=== PATIENT | female | born 1950 | race Two or more races ===

== ENCOUNTER 2024-10-13 10:11 | Emergency (ER) | payer MEDICARE, MEDICAID, SELFPAY ==
--- NOTE | 2024-10-13 10:34 | EKG_ITS ---
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
--- NOTE | 2024-10-13 10:35 | XR_ITS ---
Examination: PA lateral chest 2 views TECHNIQUE: Upright PA lateral chest 2 views Exam date and time: October 13, 2024 1046 hours INDICATIONS: Nausea vomiting weakness shortness of breath today FINDINGS: Normal heart size Lungs are clear The osseous structures are intact IMPRESSION: No active disease
--- NOTE | 2024-10-13 10:35 | PD.EDRME ---
Rapid Medical Screening Exam RME Arrival date/time: 10/13/24 10:11 74-year-old female presents to the emergency department complains of nausea vomiting weakness Chief Complaint: Weakness
[2024-10-13 10:42] VITALS: BP 164/91; PULSE 97; RESP 19; TEMP 36.9; O2SAT 100; BMI 23.6
[2024-10-13] MEDS: METOCLOPRAMIDE INJ 5 MG/ML VIAL 2 ML 10 MG IM (10:42)
[2024-10-13 11:15] LABS: Collection Type, Urine Clean Catch; Squamous Epithelial Cell,Urine 0 /hpf (0-5)
[2024-10-13 11:17] LABS: Lactate (Lactic Acid) 2.6 mMol/L (0.4-2.0)
[2024-10-13 11:22] LABS: Basophils % (Auto) 0 % (0-2.5); Eosinophils % (Auto) 0 % (0-10); Hematocrit 33.4 % (36.0-46.0); Hemoglobin 11.4 g/dL (12.0-16.0); Immature Granulocytes % (Auto) 1 % (0-0); Immature Granulocytes Auto 0.04 Thou/mm3 (0.00-0.00); Lymphocytes # (Auto) 1.5 Thou/mm3 (1.0-4.8); Lymphocytes % (Auto) 18 % (10-50); Mean Corpuscular HGB Conc 34.1 g/dl (31.0-37.0); Mean Corpuscular Hemoglobin 24.7 pg (25.0-35.0); Mean Corpuscular Volume 73 fL (80-100); Monocytes # (Auto) 0.6 Thou/mm3 (0.0-0.8); Monocytes % (Auto) 7 % (0-12); Neutrophils # (Auto) 6.3 Thou/mm3 (1.8-7.7); Neutrophils % (Auto) 74 % (37-80); Nucleated Red Blood Cell % 0 /100 WBC (0); Platelet Count 303 Thou/mm3 (140-440); RDW Standard Deviation 35.6 fL (36.4-46.3); Red Blood Count 4.61 Miln/mm3 (4.00-5.20); White Blood Count 8.5 Thou/mm3 (3.6-11.0)
[2024-10-13 11:46] LABS: Alanine Aminotransferase 21 U/L (10-49); Albumin, Serum 4.5 gm/dL (3.4-4.8); Albumin/Globulin Ratio 1.6 (1.2-2.2); Alkaline Phosphatase 82 U/L (46-116); Anion Gap 11 (7-16); Aspartate Amino Transferase 27 U/L (0-34); BUN/Creatinine Ratio 8 Ratio (12-20); Bilirubin,Total 0.8 mg/dL (0.3-1.2); Blood Urea Nitrogen 10 mg/dL (9-23); Calcium 9.8 mg/dL (8.3-10.6); Calcium (Corrected) 9.8 mg/dL (8.5-10.1); Carbon Dioxide 26.5 mMol/L (20.0-31.0); Chloride 84 mMol/L (98-107); Creatinine (Component) 1.2 mg/dL (0.6-1.3); Globulin 2.8 gm/dL (2.3-3.5); Glucose 231 mg/dL (74-106); Lipase 78 U/L (12-53); Osmolality,Calculated 250 (275-295); Procalcitonin < 0.04 ng/ml (0.0-0.49); Sodium 121 mMol/L (136-145); Total Protein 7.3 gm/dL (5.7-8.2); Troponin I < 0.020 ng/mL (0.0-0.045); eGFR 47 See Note
[2024-10-13 11:51] LABS: Bilirubin,Urine Negative (Negative); Blood,Urine Negative (Negative); Clarity,Urine Clear (Clear/Hazy); Color,Urine Lt-Yellow (Lt Yel-Yel); Culture Indicated,Urine Not Indicated; Glucose, Urine 4+ (Negative); Ketones,Urine Negative (Negative); Leukocyte Esterase,Urine Negative (Negative); Nitrite,Urine Negative (Negative); Protein,Urine 2+ (Neg - Trace); RBC,Urine 2 /hpf (0-3); Specific Gravity,Urine 1.003 (1.001-1.035); Urobilinogen,Urine Negative mg/dL (0.0-1.0); WBC,Urine < 1 /hpf (0-5)
[2024-10-13 14:12] LABS: Reflex Lactate? Y
[2024-10-13 15:58] VITALS: BP 168/93; PULSE 87; RESP 26; TEMP 36.8; O2SAT 100
--- NOTE | 2024-10-13 16:09 | XR_ITS ---
Examination: CT abdomen and pelvis without contrast. Coronal 3-D reconstructions. Sagittal 2-D reconstructions. Date and time of exam:October 13, 2024 at 1720 hours Comparison December 04, 2023 INDICATIONS: Left upper abdominal pain today and beginning 4 days ago CTDI: vol (mGy): 5.26 DLP: (mGycm): 254 Technique: Axial images of the abdomen have been obtained, 3 mm slice thickness Intravenous contrast material has not been administered. Low dose protocols were performed. One or more of the following dose reduction techniques were used; automated exposure control, adjustment of the mA and/or KV according to patient size, use of iterative reconstruction technique. Findings: No focal liver or splenic lesions Absent gallbladder No pancreatic or adrenal mass Moderate bilateral renal parenchymal scar formation No renal or ureteral calculi, no hydronephrosis Abdominal aortic calcification no aneurysmal dilatation Normal appendix Diffuse colonic diverticulosis, no diverticulitis Significantly enlarged fundus of uterus Urinary bladder wall thickening up to 4 mm anteriorly Prominent osteopenia IMPRESSION: Moderate bilateral renal parenchymal scar formation No renal or ureteral calculi, no hydronephrosis Normal appendix Diffuse colonic diverticulosis, no diverticulitis Abnormal enlarged globular fundus of uterus, recommend pelvic sonography follow-up
--- NOTE | 2024-10-13 16:12 | PD.EDADULT ---
ED General RME/HPI General Chief complaint: Weakness Stated complaint: Weak, tired, vomiting Time Seen by Provider: 10/13/24 16:01 Arrival date/time: 10/13/24 10:11 CC: Retching without vomiting loss of appetite, left upper quadrant abdominal pain. HPI ongoing for the past 2 weeks. Family member state the patient tries to get food in her mouth and then reflexively retches. Denies chest pain shortness of breath although family ember states the patient has mild dementia. RME / HPI RME / HPI narrative: 10/13/24 10:11 74-year-old female presents to the emergency department complains of nausea vomiting weakness Related Data Home Medications ?Medication ?Instructions ?Recorded ?Confirmed citalopram 20 mg tablet (Celexa) 20 mg PO QDAY #0 tabs 06/04/14 11/03/23 benztropine 2 mg tablet 2 mg PO BID 04/09/19 11/03/23 memantine 10 mg tablet 10 mg PO BID 10/29/19 11/03/23 ticagrelor 90 mg tablet (Brilinta) 90 mg PO BID 10/29/19 11/03/23 Held on 11/05/23. Instructions: Resume on 11/12/23. Patient at this time is at high risk of serious bleeding. Resume Brilinta on the October, aspirin 81 mg tablet,delayed 81 mg PO QDAY 02/20/20 11/02/23 release Held on 11/05/23. Instructions: Resume on 12/04/23. Aspirin increase the risk of bleeding at this time. Resume on the November atorvastatin 80 mg tablet 80 mg PO QDAY 02/20/20 11/03/23 donepezil 10 mg tablet 10 mg PO QDAY 02/20/20 11/03/23 pantoprazole 40 mg tablet,delayed 40 mg PO QDAY 02/20/20 11/03/23 release aripiprazole 20 mg tablet (Abilify) 20 mg PO QDAY 03/14/21 11/03/23 metformin 1,000 mg tablet 1,000 mg PO BID 09/05/21 11/03/23 benzonatate 100 mg capsule 100 mg PO TID PRN Cough 10/25/23 11/03/23 gabapentin 300 mg tablet 300 mg PO TID 11/02/23 11/02/23 glipizide 5 mg tablet, extended 5 mg PO QDAY 11/02/23 11/02/23 release 24 hr Previous Rx's ?Medication ?Instructions ?Recorded polyethylene glycol 3350 17 gram 17 g PO QDAY #30 ea 10/25/23 oral powder packet (Miralax) pantoprazole 40 mg tablet,delayed 40 mg PO BID #60 tabs 11/05/23 release ondansetron 4 mg disintegrating 4 mg PO Q8H #10 tabs 10/13/24 tablet Allergies Allergy/AdvReac Type Severity Reaction Status Date / Time Penicillins Allergy Severe CANT Verified 10/13/24 10:17 BREATHE Review of Systems Review of Systems Narrative Review of Systems: GEN: No fever, no chills, no weight loss EYES: No discharge, no visual changes, no pain HEENT: No ear pain, no congestion, no sore throat PULM: No shortness of breath, no cough, no congestion CV: No chest pain, no dyspnea on exertion, no palpitations GI: No nausea, no vomiting, no diarrhea, no pain, no constipation : No frequency, no urgency, no dysuria MUSC/SKEL: No joint pain, no back pain SKIN: No rash PSYCH: No hallucinations, no depression HEME/LYMPH: No easy bleeding or bruising tendencies NEURO: No weakness, no headache Past Medical History Past Medical History NEUROLOGIC: Positive Neurological Disorders, Cerebrovascular Accident, Transient Ischemic Attacks (TIA), Dementia, Alzheimer's Disease and Peripheral Neuropathy; Negative Parkinson's Disease, Brain Tumor, Meningitis, Seizures, Epilepsy, Multiple Sclerosis, Cerebral Palsy, Amyotrophic Lateral Sclerosis (ALS/Ericka Gehrig's), Guillain-Sunbright Syndrome, Spina Bifida, Paralysis, Stevens's Palsy, Subdural Hematoma, Migraine, Head Trauma, Spinal Cord Injury or Traumatic Brain Injury CARDIAC: Positive Coronary Artery Disease, Hypercholesterolemia and Hypertension; Negative Cardiac Disorders, Myocardial Infarction, Cardiac Arrhythmia, Atrial Fibrillation, Angina, Heart Murmur, Peripheral Vascular Disease, Congestive Heart Failure, Congenital Heart Disease, Valvular Heart Disease, Cardiomyopathy, Edema, Pericarditis, Cellulitis, Deep Vein Thrombosis, Hypotension or Varicose Veins RESPIRATORY: Negative Chronic Obstructive Pulmonary Disease (COPD) or Asthma GASTROINTESTINAL: Positive Gastrointestinal Disorders, Hepatitis, Gall Bladder Disease and Gastroesophageal Reflux Disease; Negative Colorectal Cancer GENITOURINARY: Positive Genitourinary Disorders and Renal Disease; Negative Prostate Cancer REPRODUCTIVE: Positive Previous Pregnancies; Negative Breast Cancer, Endometriosis, Pelvic Inflammatory Disease, Testicular Cancer or Uterine Prolapse MUSCULOSKELETAL: Negative Musculoskeletal Disorders, Muscular Dystrophy, Myasthenia Gravis, Marfan's Syndrome, Bone Cancer, Arthritis, Rheumatoid Arthritis, Osteoporosis, Degenerative Disk Disease, Gout, Scoliosis, Fibromyalgia, Fractures, Degenerative Joint Disease, Osteomyelitis or Poliovirus ENT: Negative Head Trauma ENDOCRINE: Positive Endocrine Disorders; Negative Diabetes Mellitus Type 1, Diabetes Mellitus Type 2, Hypoglycemia, Blacklick's Syndrome, Grovespring's Disease, Hyperthyroidism, Hypothyroidism, Parathyroid Disease, Pituitary Disease, Systemic Lupus Erythematosus, Syndrome of Inappropriate Antidiuretic Hormone (SIADH), Adrenal Disease or Graves' Disease HEMATOLOGIC: Positive Anemia; Negative Blood Disorders, Leukemia, Hemophilia, Thalassemia, Sickle Cell Disease or Clotting Problems PSYCHO/SOCIAL: Positive Psychiatric Problems, Schizophrenia, Depression and Anxiety; Negative Bipolar Disorder or Behavior Problems OTHER HISTORY: Positive Hospitalization, Falls, Blood Transfusions, Blood Transfusion Reaction and Chicken Pox; Negative Autoimmune Disease, Autism, Anesthesia Reactions, Organ Transplant, Chemotherapy, Radiation Therapy, Hyperbaric Therapy, MRSA, VRSA, Vancomycin-Resistant Enterococci, Human Immunodeficiency Virus (HIV), Measles, Mumps, Rubella (Frisian Measles), Pertussis, Clostridium Difficile, Cancer, Breast Cancer, Cervical Cancer, Colorectal Cancer, Lung Cancer, Ovarian Cancer, Prostate Cancer or Testicular Cancer Family History FAMILY HISTORY: Positive Family Psychiatric Problems, Family Cardiac Disorders and Family Surgery; Negative Family Respiratory Disorders, Family Gastrointestinal Problems, Family Cancer or Family Anesthesia Reaction Surgical History SURGICAL: Positive Coronary Stent, Cardiac Catheterization, Angiogram and Tubal Ligation; Negative Cardiac Surgery, Open Heart Surgery, Coronary Artery Bypass Graft, Vascular Surgery, Pacemaker, Auto Implanted Cardiovert Defib, Carotid Endarterectomy, Endocrine Surgery, Thyroidectomy, Ear Surgery, Abdominal Surgery, Nephrectomy, Joint Replacement, Neurologic Surgery, Mastectomy, Lumpectomy, Hysterectomy, Section or Organ Transplant Social History SMOKING STATUS: Never smoker SUBSTANCE USE: does not use ED Exam Narrative Physical exam: [General: Appears not in any acute distress Head normocephalic HEENT: Within acceptable limits Neck is supple nontender Chest equal chest rise nontender to palpation Respiratory: Clear to auscultation no wheezes crackles or rubs CV: Rate rhythm is regular no murmurs rubs or clicks Abdomen left upper quadrant abdominal pain with reflux of guarding no rebound tenderness no right upper quadrant epigastric or lower quadrant tenderness with palpation. Back: No CVA tenderness no spinous process tenderness from cervical spine thoracic and lumbar spine Skin: Intact no petechiae rash induration ulceration or crepitus Extremities: Moving all extremity against resistance cap refill less than 2 seconds neurosensory intact Neuro: Awake alert oriented x1, self, Glascow coma 15 no focal deficits] Course Quality Measures VTE prophylaxis Orders Category Date Time Status Bedside COVID-19 Antigen Test NOW Care 10/13/24 10:35 Completed Bedside Influenza A&B Antigen Test NOW Care 10/13/24 10:35 Completed EKG (ED ONLY) *Do not use* NOW Care 10/13/24 10:35 Completed Saline [Insert IV] NOW Care 10/13/24 16:[address] abdomen pelvis wo con Stat Exams 10/13/24 16:09 Completed EKG (ED Only) Stat Exams 10/13/24 10:34 Draft XR chest 2V Stat Exams 10/13/24 10:35 Completed Blood Culture (Lab) Stat Lab 10/13/24 10:58 Results CBC Stat Lab 10/13/24 11:04 Completed Comprehensive Metabolic Panel Stat Lab 10/13/24 11:04 Completed Lactate (Lactic Acid) Stat Lab 10/13/24 11:04 Completed Lactic Acid, 3 HR Stat Lab 10/13/24 17:32 Completed Lipase Stat Lab 10/13/24 11:04 Completed Procalcitonin Stat Lab 10/13/24 11:04 Completed Troponin I Stat Lab 10/13/24 11:04 Completed UA, C/S IF [Urinalysis, C/S if Indicated] Stat Lab 10/13/24 11:07 Completed Metoclopramide Inj [Reglan Inj] Med 10/13/24 10:35 Discontinued 10 mg IM X1 ONE Ondansetron Inj [Zofran Inj] Med 10/13/24 18:10 Discontinued 4 mg .ROUTE .STK-MED ONE Ondansetron Inj [Zofran Inj] Med 10/13/24 18:13 Discontinued 4 mg IV X1 ONE Sodium Chloride 0.9% 500 ml [Ns] 500 ml Med 10/13/24 16:06 Discontinued IV 999 mls/hr hydrALAZINE INJ [Apresoline Inj] Med 10/13/24 18:12 Discontinued 10 mg IV X1 ONE Vital Signs Vital signs: Vital Signs Temperature 98.5 F 10/13/24 10:42 Pulse Rate 97 10/13/24 10:42 Respiratory Rate 19 10/13/24 10:42 Blood Pressure 164/91 H 10/13/24 10:42 Pulse Oximetry (%) 100 10/13/24 10:42 Oxygen Delivery Method Room Air 10/13/24 10:42 [facility] Patient data External records reviewed:: [facility] previous records and EMS form Clinical information provided by:: patient Social determinants that could affect healthcare access:: none Patient has the following chronic illnesses:: Hypertension diabetes How is presenting disease/condition affected by chronic disease/condition?: uneffected by Evaluation data The following diagnostics were reviewed and interpreted by me:: lab results, radiology exam(s) and EKG tracing(s) Lab and/or radiology exams considered but not ordered:: Influenza B positive CBC shows no leukocytosis H&H of 11 and 33 platelets 303 CMP shows a sodium of 129 potassium of 4.0 chloride of 84 CO2 26 gap of 11 BUN of 10 creatinine of 1.2 with creatinine clearance of 27. T. bili is negative trend no transaminitis Troponin is negative Lipase is 78. Urine is 4+ glucose to 2+ protein no signs of UTI. EKG performed at 1040 shows a ventricular rate of 97 QRS of 9 5 QTc of 401 this is sinus tachycardia with P waves. \Chest x-ray shows no active disease. CT of the abdomen pelvis shows enlarged fundus which may require further outpatient follow-up but no other acute finding that requires emergent or immediate intervention as interpreted by me read by radiology. Interpretation Summary: Nausea vomiting with influenza B Medications Medications considered but not ordered:: None Medication administrations:: Medication Administration History Discontinued Medications Hydralazine HCl (Hydralazine Inj 20 Mg/Ml Vial) 10 mg IV X1 ONE Stop: 10/13/24 18:13 Last Admin: 10/13/24 18:16 Dose: 10 mg Documented By: GM Sodium Chloride (Ns) 500 mls @ 999 mls/hr IV .Q31M ONE Stop: 10/13/24 16:36 Last Infusion: 10/13/24 17:00 Dose: Infused Documented By: Admin: 10/13/24 16:20 Dose: 999 mls/hr Documented By: Metoclopramide HCl (Metoclopramide Inj 5 Mg/Ml Vial 2 Ml) 10 mg IM X1 ONE; Protocol Stop: 10/13/24 10:36 Last Admin: 10/13/24 10:42 Dose: 10 mg Documented By: OA Ondansetron HCl (Ondansetron Inj 2 Mg/Ml Inj 2 Ml) 4 mg IV X1 ONE; Protocol Stop: 10/13/24 18:14 Last Admin: 10/13/24 18:17 Dose: 4 mg Documented By: GM Ondansetron HCl (Ondansetron Inj 2 Mg/Ml Inj 2 Ml) Confirm Administered Dose 4 mg .ROUTE .STK-MED ONE Stop: 10/13/24 18:11 Last Admin: 10/13/24 18:19 Dose: Not Given Documented By: GM Non-Admin Reason: Duplicate Medication on eMAR None Consultations Consultation(s) initiated? (list below): No Diagnosis Differential Diagnosis ED Complaint MDM: Influenza B ileus obstruction Most likely diagnosis given after review of the tests above:: Influenza B nausea vomiting Admission Indicated Admission indicated?: not indicated Explain why admission is indicated or not indicated:: Stable for outpatient follow-up Admission Request Was there a request for admission?: No Disposition Plan Disposition Plan: Discharge Discharge Attestation Discharge Attestation: The patient and all family members were given an opportunity to ask questions and understood the discharge instructions. Discharge instructions specifically effects, indications for sooner follow up or return to the emergency department, and the expected course of current diagnosis. Patient condition: Stable Medical Decision Making Differential Diagnosis Differential Diagnosis: Influenza B ileus obstruction Lab Data 10/13/24 11:04 10/13/24 11:04 Labs: Lab Results 10/13/24 10/13/24 10/13/24 Range/Units 11:04 11:07 17:32 WBC 8.5 (3.6-11.0) Thou/mm3 RBC 4.61 (4.00-5.20) Miln/mm3 Hgb 11.4 L (12.0-16.0) g/dL Hct 33.4 L (36.0-46.0) % MCV 73 L (80-100) fL MCH 24.7 L (25.0-35.0) pg MCHC 34.1 (31.0-37.0) g/dl RDW Std Deviation 35.6 L (36.4-46.3) fL Plt Count 303 (140-440) Thou/mm3 Neut % (Auto) 74 (37-80) % Lymph % (Auto) 18 (10-50) % [place] % (Auto) 7 (0-12) % Eos % (Auto) 0 (0-10) % Baso % (Auto) 0 (0-2.5) % Neut # (Auto) 6.3 (1.8-7.7) Thou/mm3 Lymph # (Auto) 1.5 (1.0-4.8) Thou/mm3 [place] # (Auto) 0.6 (0.0-0.8) Thou/mm3 Eos # (Auto) 0.0 (0.0-0.5) Thou/mm3 Baso # (Auto) 0.0 (0.0-0.2) Thou/mm3 Immature Gran # (Auto) 0.04 H (0.00-0.00) Thou/mm3 Absolute Nucleated RBC 0.00 (0.00-0.00) Thou/mm3 Immature Gran % 1 H (0-0) % Nucleated RBC % 0 (0) /100 WBC Sodium 121 L (136-145) mMol/L Potassium 4.0 (3.4-5.1) mMol/L Chloride 84 L (98-107) mMol/L Carbon Dioxide 26.5 (20.0-31.0) mMol/L Anion Gap 11 (7-16) BUN 10 (9-23) mg/dL Creatinine 1.2 (0.6-1.3) mg/dL Estim Creat Clear Calc 27.0 L (>60) mL/min eGFR 47 L (60 - ) See Note BUN/Creatinine Ratio 8 L (12-20) Ratio Glucose 231 H (74-106) mg/dL Calculated Osmolality 250 L (275-295) Lactic Acid 2.6 H 2.2 H (0.4-2.0) mMol/L Calcium 9.8 (8.3-10.6) mg/dL Corrected Calcium 9.8 (8.5-10.1) mg/dL Total Bilirubin 0.8 (0.3-1.2) mg/dL AST 27 (0-34) U/L ALT 21 (10-49) U/L Alkaline Phosphatase 82 (46-116) U/L Troponin I < 0.020 (0.0-0.045) ng/mL Total Protein 7.3 (5.7-8.2) gm/dL Albumin 4.5 (3.4-4.8) gm/dL Globulin 2.8 (2.3-3.5) gm/dL Albumin/Globulin Ratio 1.6 (1.2-2.2) Lipase 78 H (12-53) U/L Procalcitonin < 0.04 (0.0-0.49) ng/ml Ur Collection Type Clean Catch Urine Color Lt-Yellow (Lt Yel-Yel) Urine Clarity Clear (Clear/Hazy) Urine pH 7.0 (5.0-7.0) Ur Specific [place] 1.003 (1.001-1.035) Urine Protein 2+ A (Neg - Trace) Urine Glucose (UA) 4+ A (Negative) Urine Ketones Negative (Negative) Urine Blood Negative (Negative) Urine Nitrite Negative (Negative) Urine Bilirubin Negative (Negative) Urine Urobilinogen (Auto) Negative (0.0-1.0) mg/dL Ur Leukocyte Esterase Negative (Negative) Urine RBC 2 (0-3) /hpf Urine WBC < 1 (0-5) /hpf Ur Squamous Epith Cells 0 (0-5) /hpf Urine Bacteria None (None) Ur Culture Indicated? Not Indicated Discharge Plan Plan Patient Disposition: HOME (Self Care) Patient condition on transfer: Stable Prescriptions/Referrals Prescriptions/Med Rec: New ondansetron 4 mg tablet,disintegrating 4 mg PO Q8H Qty: 10 0RF No Action citalopram [Celexa] 20 mg Tablet 20 mg PO QDAY Qty: 0 atorvastatin 80 mg Tablet 80 mg PO QDAY donepezil 10 mg Tablet 10 mg PO QDAY aspirin 81 mg Tablet,Delayed Release (Dr/Ec) 81 mg PO QDAY pantoprazole 40 mg Tablet,Delayed Release (Dr/Ec) 40 mg PO QDAY aripiprazole [Abilify] 20 mg Tablet 20 mg PO QDAY metformin 1,000 mg tablet 1,000 mg PO BID benztropine 2 mg tablet 2 mg PO BID memantine 10 mg Tablet 10 mg PO BID Brilinta 90 mg Tablet 90 mg PO BID benzonatate 100 mg Capsule 100 mg PO TID PRN (Reason: Cough) polyethylene glycol 3350 [Miralax] 17 gram Powder In Packet 17 g PO QDAY Qty: 30 0RF glipizide 5 mg Tablet Extended Release 24hr 5 mg PO QDAY gabapentin 300 mg Tablet 300 mg PO TID pantoprazole 40 mg Tablet,Delayed Release (Dr/Ec) 40 mg PO BID Qty: 60 2RF Referrals: No Primary/Family,Physician [Primary Care Provider] - In 1 week Problem List Clinical Impression: Influenza B, Nausea & vomiting Patient/Caregiver Discharge Instructions Education Materials: The Flu (Influenza), ED Vomiting and Diarrhea ... Print Language: [employer] Stand Alone Forms: Sabrina Award Info., Patient Portal Info Letter PA/MANAGER RENTAL Supervising Physician PA/MANAGER RENTAL Supervising Physician: Elvin Loya ENP
[2024-10-13] MEDS: SODIUM CHLORIDE 0.9% 500 ML 500 ML 999 ML IV (16:20)
[2024-10-13 17:43] LABS: Lactic Acid, 3 HR 2.2 mMol/L (0.4-2.0)
[2024-10-13 18:00] VITALS: BP 165/107; PULSE 78; RESP 24; TEMP 37.1; O2SAT 100
[2024-10-13 18:16] VITALS: BP 178/114; PULSE 82
[2024-10-13] MEDS: hydrALAZINE INJ 20 MG/ML VIAL 10 MG IV (18:16)
[2024-10-13] MEDS: ONDANSETRON INJ 2 MG/ML INJ 2 ML 4 MG IV (18:17)
[2024-10-13 19:50] VITALS: BP 133/76; PULSE 97; RESP 20; TEMP 36.7; O2SAT 100
== END 2024-10-13 19:50 | disposition home or self-care (01) ==
PROVIDERS: Nurse Practitioner Primary Care; Emergency Provider Emergency Medicine
DX: J10.1 Influenza due to other identified influenza virus with other respiratory manifestations (principal); F02.A3 Dementia in other diseases classified elsewhere, mild, with mood disturbance
CPT/HCPCS: 36415; 71046; 74176; 80053; 81001; 83605; 83690; 84145; 84484; 85025; 87040; 87400; 87811; 93005; 96361; 96372; 96374; 99284; J0360; J2405; J2765; J7040

== ENCOUNTER 2024-11-09 10:50 | Emergency (ER) | payer MEDICARE, MEDICAID, SELFPAY ==
[2024-11-09 11:16] VITALS: BP 154/92; PULSE 100; RESP 18; TEMP 36.9; O2SAT 98; BMI 21.2
--- NOTE | 2024-11-09 11:19 | EDRME_ITS ---
Rapid Medical Screening Exam [facility] Arrival date/time: 11/09/24 10:50 74-year-old female with a history of hyperlipidemia, hypertension, type 2 diabetes presents to the emergency room with a chief complaint of generalized abdominal pain and cramping, diarrhea, fatigue and weakness x 1 week. Patient states she was seen here in the emergency room a month ago and discharged with influenza B but her symptoms have progressively gotten worse. I have greeted and performed a focused initial assessment of this patient. A comprehensive ED assessment and evaluation of the patient, analysis of all test results, and completion of the medical decision making process will be conducted by additional ED providers. Chief Complaint: Nausea/Vomiting/Diarrhea Time Seen by Provider: 11/09/24 11:12 Vital signs: Vital Signs Temperature 98.4 F 11/09/24 11:16 Pulse Rate 100 11/09/24 11:16 Respiratory Rate 18 11/09/24 11:16 Blood Pressure 154/92 H 11/09/24 11:16 Pulse Oximetry (%) 98 11/09/24 11:16 Oxygen Delivery Method Room Air 11/09/24 11:16 Vital signs reviewed by provider: Yes
--- NOTE | 2024-11-09 11:19 | EKG_ITS ---
[facility] Test Date: 2024-11-09 Pat Name: SUNI SCOTT Department: Room: - Gender: Female [employer]: : [id number] Requested By: Foster Nicole Order Number: [id number] Reading MD: Foster Nicole Measurements Intervals [place] Rate: 99 P: 64 TN: 164 QRS: 61 QRSD: 87 T: 67 QT: 350 QTc: 449 Interpretive Statements SINUS RHYTHM Compared to ECG 10/13/2024 10:40:26 Atrial flutter no longer present /store/S0/[id number]
--- NOTE | 2024-11-09 11:19 | XR_ITS ---
Examination: AP lateral chest 2 views TECHNIQUE: Sitting AP lateral chest 2 views Exam date and time: November 09, 2024 1041 hours INDICATIONS: Chest pain today. FINDINGS: Normal heart size No lobar pneumonia. No pulmonary edema Prominent osteopenia IMPRESSION: No lobar pneumonia or pulmonary edema
--- NOTE | 2024-11-09 11:21 | XR_ITS ---
Examination: Pelvic ultrasound, transabdominal, complete Technique: Transabdominal ultrasound of the pelvis performed using grayscale imaging Date and time of exam: November 09, 2024 1246 hours INDICATIONS: Enlarged globular fundus of the uterus on CT examination October 13, 2024 and today FINDINGS: Uterus 8.5 cm endometrial stripe 2.9 cm Fundal masses 3.5 cm, 4.4 cm Right ovary 2.4 cm arterial flow Left ovary 1.9 cm arterial flow IMPRESSION: Abnormally thickened endometrial stripe 2.9 cm, differential would include malignant neoplasm of the endometrium Recommend elective MRI pelvis follow-up pre and postcontrast
--- NOTE | 2024-11-09 11:21 | XR_ITS ---
Examination: CT abdomen and pelvis without contrast. Coronal 3-D reconstructions. Sagittal 2-D reconstructions. Date and time of exam:November 09 2024 at 1206 hours Comparison October 13, 2024 INDICATIONS: Nausea vomiting abdominal pain beginning 2 weeks ago CTDI: vol (mGy): 4.57 DLP: (mGycm): 128 Technique: Axial images of the abdomen have been obtained, 3 mm slice thickness Intravenous contrast material has not been administered. Low dose protocols were performed. One or more of the following dose reduction techniques were used; automated exposure control, adjustment of the mA and/or KV according to patient size, use of iterative reconstruction technique. Findings: No focal liver or splenic lesion Absent gallbladder No pancreatic or adrenal mass Moderate bilateral renal parenchymal scar formation No renal or ureteral calculi, no hydronephrosis Dense abdominal aortic calcification no aneurysmal dilatation Normal appendix Colonic diverticulosis, no diverticulitis Again noted marked enlargement fundus of uterus Urinary bladder wall thickening up to 12 mm Significant osteopenia IMPRESSION: Moderate bilateral renal parenchymal scar formation No bowel obstruction Normal appendix Again noted marked enlargement fundus of uterus Urinary bladder wall thickening up to 12 mm, differential would include cystitis
[2024-11-09 11:57] LABS: Basophils % (Auto) 0 % (0-2.5); Eosinophils % (Auto) 0 % (0-10); Hematocrit 33.9 % (36.0-46.0); Hemoglobin 11.7 g/dL (12.0-16.0); Immature Granulocytes % (Auto) 0 % (0-0); Immature Granulocytes Auto 0.02 Thou/mm3 (0.00-0.00); Lymphocytes # (Auto) 1.4 Thou/mm3 (1.0-4.8); Lymphocytes % (Auto) 19 % (10-50); Mean Corpuscular HGB Conc 34.5 g/dl (31.0-37.0); Mean Corpuscular Hemoglobin 24.9 pg (25.0-35.0); Mean Corpuscular Volume 72 fL (80-100); Monocytes # (Auto) 0.5 Thou/mm3 (0.0-0.8); Monocytes % (Auto) 7 % (0-12); Neutrophils # (Auto) 5.3 Thou/mm3 (1.8-7.7); Neutrophils % (Auto) 73 % (37-80); Nucleated Red Blood Cell % 0 /100 WBC (0); Platelet Count 288 Thou/mm3 (140-440); RDW Standard Deviation 36.8 fL (36.4-46.3); White Blood Count 7.3 Thou/mm3 (3.6-11.0)
[2024-11-09 12:11] LABS: Prothrombin Time 11.3 Seconds (9.0-12.2)
[2024-11-09 12:18] LABS: B-Type Natriuretic Peptide < 20 pg/mL (0-100)
[2024-11-09 12:21] LABS: Alanine Aminotransferase 11 U/L (10-49); Albumin, Serum 4.6 gm/dL (3.4-4.8); Albumin/Globulin Ratio 1.6 (1.2-2.2); Alkaline Phosphatase 70 U/L (46-116); Anion Gap 12 (7-16); Aspartate Amino Transferase 20 U/L (0-34); BUN/Creatinine Ratio 11 Ratio (12-20); Bilirubin,Total 0.6 mg/dL (0.3-1.2); Blood Urea Nitrogen 14 mg/dL (9-23); Calcium 9.5 mg/dL (8.3-10.6); Calcium (Corrected) 9.5 mg/dL (8.5-10.1); Carbon Dioxide 23.9 mMol/L (20.0-31.0); Chloride 93 mMol/L (98-107); Creatinine (Component) 1.3 mg/dL (0.6-1.3); Estimated Creatinine Clearance 25.1 mL/min (>60); Globulin 2.8 gm/dL (2.3-3.5); Glucose 145 mg/dL (74-106); Lipase 75 U/L (12-53); Osmolality,Calculated 262 (275-295); Potassium 3.9 mMol/L (3.4-5.1); Sodium 129 mMol/L (136-145); Total Protein 7.4 gm/dL (5.7-8.2); Troponin I < 0.020 ng/mL (0.0-0.045); eGFR 43 See Note
[2024-11-09 12:29] LABS: Collection Type, Urine Clean Catch
[2024-11-09 12:59] LABS: Bilirubin,Urine Negative (Negative); Blood,Urine Negative (Negative); Clarity,Urine Clear (Clear/Hazy); Color,Urine Lt-Yellow (Lt Yel-Yel); Glucose, Urine 4+ (Negative); Ketones,Urine Negative (Negative); Leukocyte Esterase,Urine Negative (Negative); Nitrite,Urine Negative (Negative); PH,Urine 6.5 (5.0-7.0); Protein,Urine 2+ (Neg - Trace); RBC,Urine 1 /hpf (0-3); Specific Gravity,Urine 1.006 (1.001-1.035); Squamous Epithelial Cell,Urine < 1 /hpf (0-5); Urobilinogen,Urine Negative mg/dL (0.0-1.0); WBC,Urine 1 /hpf (0-5)
[2024-11-09 13:00] LABS: HCG Qualitative,Urine Negative
[2024-11-09 19:58] VITALS: BP 160/89; PULSE 99; RESP 18; TEMP 36.6; O2SAT 99
== END 2024-11-10 | disposition left against medical advice (07) ==
PROVIDERS: Nurse Practitioner Family; Emergency Provider Emergency Medicine; PCP Family Medicine
DX: R10.84 Generalized abdominal pain (principal); R07.9 Chest pain, unspecified; R25.2 Cramp and spasm; R19.7 Diarrhea, unspecified; R53.83 Other fatigue; R53.1 Weakness; R11.2 Nausea with vomiting, unspecified; N85.2 Hypertrophy of uterus; Z53.29 Procedure and treatment not carried out because of patient's decision for other reasons
CPT/HCPCS: 36415; 71046; 74176; 76856; 80053; 81001; 81025; 83690; 83880; 84484; 85025; 85610; 87086; 93005; 99281

== ENCOUNTER 2024-11-13 12:17 | Inpatient (IN) | payer MEDICARE, MEDICAID, SELFPAY ==
[2024-11-13] VITALS (11 sets, daily range): BP systolic 132–177; BP diastolic 66–97; PULSE 72–98; RESP 17–100; TEMP 36.1–36.7; O2SAT 97–100; BMI 25.0
--- NOTE | 2024-11-13 12:37 | XR_ITS ---
Examination: CT brain head without contrast. 2-D sagittal coronal reconstructions Date and time of exam:November 13, 2024 1443 hours Comparison June 03, 2022 INDICATIONS: Patient fell today with injury to head, head pain CTDI: vol (mGy):50.2 DLP: (mGycm):995 Technique: Multiple CT axial sections of the brain have been obtained, 5 mm slice thickness. Contrast has not been administered. 2-D sagittal, coronal reconstructions have been obtained Low dose protocols were performed. One or more of the following dose reduction techniques were used; automated exposure control, adjustment of the mA and/or KV according to patient size, use of iterative reconstruction technique. Findings: No significant ventricular enlargement. Intra-axial or extra-axial hemorrhage density is not seen. No mass effect or midline shift Basal cisterns are not remarkable. Fourth ventricle is midline. Cranial vault intact. Impression: Negative for acute hemorrhage, mass effect or midline shift
--- NOTE | 2024-11-13 12:37 | XR_ITS ---
Examination: AP pelvis single view TECHNIQUE: AP portable supine pelvis single view Exam daytime quadrant November 13, 2024 1206 hours Comparison June 03, 2022 INDICATION: Patient fell today with injury to the pelvis, pelvic pain. FINDINGS: No acute hip or pelvic fracture Mild bilateral hip osteoarthritis IMPRESSION: No acute hip or pelvic fracture
--- NOTE | 2024-11-13 12:38 | EKG_ITS ---
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
--- NOTE | 2024-11-13 12:38 | XR_ITS ---
Examination: AP chest single view TECHNIQUE: AP portable upright chest single view Exam date and time: November 13, 2024 1201 hours INDICATIONS: Sepsis protocol today FINDINGS: Normal heart size No pneumonia No pneumothorax. Clavicles ribs appear intact IMPRESSION: No pneumonia pneumothorax or pulmonary contusion
--- NOTE | 2024-11-13 12:39 | PD.EDAMS ---
Altered Mental Status RME/HPI General Chief Complaint: Altered Mental Status Stated Complaint: AMS Time Seen by Provider: 11/13/24 12:31 Arrival date/time: 11/13/24 12:17 RME / HPI RME / HPI narrative: 74-year-old female patient with significant history of dementia, hypercholesterolemia, diabetes mellitus was brought in by EMS for evaluation regarding altered mental status. Patient was noted to be altered since yesterday morning. Patient was brought in today because patient was noted to be weaker than usual and patient fell. After the fall patient was noted to be more confused, does not remember the name of her daughter. She was also noted to have slurring of speech since yesterday. Patient denies any headache denies any pelvic pain denies any chest pain back pain abdominal pain. Patient also was not noted to have fever. No other pertinent information can be extracted at this time. Currently patient is alert and oriented x 2, GCS 14. Patient baseline is GCS 15 according to the daughter she talks normal. She usually walks without a walker prior to the incident. Related Data Home Medications ?Medication ?Instructions ?Recorded ?Confirmed citalopram 20 mg tablet (Celexa) 20 mg PO QDAY #0 tabs 06/04/14 11/03/23 benztropine 2 mg tablet 2 mg PO BID 04/09/19 11/03/23 memantine 10 mg tablet 10 mg PO BID 10/29/19 11/03/23 ticagrelor 90 mg tablet (Brilinta) 90 mg PO BID 10/29/19 11/03/23 Held on 11/05/23. Instructions: Resume on 11/12/23. Patient at this time is at high risk of serious bleeding. Resume Brilinta on the October, aspirin 81 mg tablet,delayed 81 mg PO QDAY 02/20/20 11/02/23 release Held on 11/05/23. Instructions: Resume on 12/04/23. Aspirin increase the risk of bleeding at this time. Resume on the November atorvastatin 80 mg tablet 80 mg PO QDAY 02/20/20 11/03/23 donepezil 10 mg tablet 10 mg PO QDAY 02/20/20 11/03/23 pantoprazole 40 mg tablet,delayed 40 mg PO QDAY 02/20/20 11/03/23 release aripiprazole 20 mg tablet (Abilify) 20 mg PO QDAY 03/14/21 11/03/23 metformin 1,000 mg tablet 1,000 mg PO BID 09/05/21 11/03/23 benzonatate 100 mg capsule 100 mg PO TID PRN Cough 10/25/23 11/03/23 gabapentin 300 mg tablet 300 mg PO TID 11/02/23 11/02/23 glipizide 5 mg tablet, extended 5 mg PO QDAY 11/02/23 11/02/23 release 24 hr Previous Rx's ?Medication ?Instructions ?Recorded polyethylene glycol 3350 17 gram 17 g PO QDAY #30 ea 10/25/23 oral powder packet (Miralax) pantoprazole 40 mg tablet,delayed 40 mg PO BID #60 tabs 11/05/23 release ondansetron 4 mg disintegrating 4 mg PO Q8H #10 tabs 10/13/24 tablet Allergies Allergy/AdvReac Type Severity Reaction Status Date / Time Penicillins Allergy Severe CANT Verified 11/09/24 10:57 BREATHE Review of Systems Review of Systems Narrative Review of Systems: Review of system reviewed and within normal limits except mentioned in HPI ED Exam Narrative Physical exam: VITAL SIGNS: Reviewed. GENERAL APPEARANCE: Alert and oriented x 2, follows simple commands, no acute distress, HEAD AND FACE: Non-traumatic. ENT: PERRL, pink conjunctivitis, eyelid no trauma, Mucous membrane moist. NECK: Supple, nontender, no nuchal rigidity. CHEST: No tenderness, no crepitus, no paradoxical movement, no retractions. LUNGS: Clear, well ventilated, symmetric, no rales, no wheezing, no ronchi, no stridor, good breath sounds bilaterally. HEART: Regular rate, regular rhythm, no murmur, no gallops. ABDOMEN: Soft, positive bowel sounds, nondistended, no guarding, nontender, no rebound, no masses, RECTAL: Deferred. GENITAL: Deferred. NEUROLOGICAL: Gross motor function intact sensory function intact, Appropriate for age. MUSCULOSKELETAL: low back nontender, full range of motion. EXTREMITIES: Nontender, full range of motion. SKIN: Color pink, dry, no rash, no lacerations, no abrasions, no contusions. LYMPHATICS: Deferred. Course Quality Measures none Orders Category Date Time Status COVID-19 Screening Questionnaire NOW Care 11/13/24 17:37 Active Promotional Marketing Agent STAT Care 11/13/24 12:38 Active Continuous Pulse Oximetry STAT Care 11/13/24 12:38 Completed Decision to Admit X1 Care 11/13/24 17:37 Active EKG (ED ONLY) *Do not use* NOW Care 11/13/24 12:38 Completed In and Out Catheter X1PRN Care 11/13/24 12:38 Completed Insert IV NOW Care 11/13/24 12:38 Active NPO STAT Care 11/13/24 12:38 Active Strict Intake and Output Routine Care 11/13/24 12:38 Ordered Consult to Neurology / Tele-Neurology Stat Cons 11/13/24 16:49 Active Consult to Neurology / Tele-Neurology Stat Cons 11/13/24 17:[address] head/brain wo con Stat Exams 11/13/24 12:37 Completed EKG (ED Only) Stat Exams 11/13/24 12:38 Draft XR chest 1V SEPSIS PROTOCOL Stat Exams 11/13/24 12:38 Completed XR pelvis 1-2V Stat Exams 11/13/24 12:37 Taken B-Type Natriuretic Peptide Stat Lab 11/13/24 12:55 Completed Blood Culture (Lab) Stat Lab 11/13/24 13:00 Received CBC Stat Lab 11/13/24 12:55 Completed Comprehensive Metabolic Panel Stat Lab 11/13/24 12:55 Completed LDH (Lactate Dehydrogenase) Stat Lab 11/13/24 12:55 Completed Lactate (Lactic Acid) Stat Lab 11/13/24 12:55 Completed Lipase Stat Lab 11/13/24 12:55 Completed Magnesium Stat Lab 11/13/24 12:55 Completed Partial Thromboplastin Time Stat Lab 11/13/24 12:55 Completed Phosphorous Stat Lab 11/13/24 12:55 Completed Procalcitonin Stat Lab 11/13/24 12:55 Completed Prothrombin Time with INR Stat Lab 11/13/24 12:55 Completed Troponin I Stat Lab 11/13/24 12:55 Completed Urinalysis Stat Lab 11/13/24 13:00 Completed Urine Culture Stat Lab 11/13/24 13:00 Received Magnesium Sulfate 2 GM Ivpb [Magnesium Sulfate Ivpb] Med 11/13/24 16:05 Active 2 gm in 50 ml IV X1 Sodium Chloride 0.9% 1000 ml [Ns] 1,000 ml Med 11/13/24 16:05 Discontinued IV 999 mls/hr Oxygen Delivery NOW RT 11/13/24 12:38 Active Vital Signs Vital signs: Vital Signs Temperature 98.0 F 11/13/24 12:19 Altered Mental Status MDM Narrative MDM Narrative:: 74-year-old female patient with significant history of dementia, hypercholesterolemia, diabetes mellitus was brought in by EMS for evaluation regarding altered mental status. Patient was noted to be altered since yesterday morning. Patient was brought in today because patient was noted to be weaker than usual and patient fell. After the fall patient was noted to be more confused, does not remember the name of her daughter. She was also noted to have slurring of speech since yesterday. Patient denies any headache denies any pelvic pain denies any chest pain back pain abdominal pain. Patient also was not noted to have fever. No other pertinent information can be extracted at this time. Currently patient is alert and oriented x 2, GCS 14. Patient baseline is GCS 15 according to the daughter she talks normal. She usually walks without a walker prior to the incident. EKG shows sinus rhythm, ventricular rate of 71 bpm, no ST segment elevation depression noted. CT scan of the head came back unremarkable. Reports workup significant for sodium of 125 chloride 93 creatinine 1.5 urinalysis no UTI. I personally reviewed and interpreted the x-ray of this patient. There is no acute abnormalities found, no infiltrates no pneumothorax no hemothorax normal chest x-ray. Review of other structures was without significant abnormal findings also. I additionally reviewed the radiologist report and agree with the interpretation. X-ray of the pelvis as interpreted by me I did not notice any fracture or dislocation noted. I was able to asked the patient to ambulate, and she is having worsening dizziness with unsteady gait, she cannot walk without a walker or holding on somebody. Spoke with neurologist, Dr Rascon, who advised me to admit the patient for further management. Patient data External records reviewed:: None Clinical information provided by:: patient and family Social determinants that could affect healthcare access:: none Patient has the following chronic illnesses:: Diabetes mellitus hypertension history of stroke, dementia How is presenting disease/condition affected by chronic disease/condition?: exacerbated by Evaluation data The following diagnostics were reviewed and interpreted by me:: lab results, radiology exam(s) and EKG tracing(s) Lab and/or radiology exams considered but not ordered:: None Interpretation Summary: See results in MDM Medications / Prescriptions Medications or Prescriptions considered but not ordered:: None Medication administrations:: Medication Administration History Magnesium Sulfate (Magnesium Sulfate Ivpb) 2 gm in 50 mls @ 25 mls/hr IV X1 ONE Stop: 11/13/24 18:04 Last Admin: 11/13/24 16:21 Dose: 25 mls/hr Documented By: SOHAIL Discontinued Medications Sodium Chloride (Ns) 1,000 mls @ 999 mls/hr IV .Q1H1M ONE Stop: 11/13/24 17:05 Last Admin: 11/13/24 16:21 Dose: 999 mls/hr Documented By: SOHAIL IV fluid hydration magnesium sulfate IV Consultations Consultation(s) initiated? (list below): No Diagnosis Differential diagnosis altered mental status: altered mental status and other (Strokelike symptoms, dizziness) Most likely diagnosis given after review of the tests above:: Altered mental status, dizziness Admission Indicated Admission indicated?: indicated Explain why admission is indicated or not indicated:: Further management Admission Request Was there a request for admission?: Yes Admission Attestation Admission request attestation: Discussed case with [Dr. Carreon] from Hospitalist service regarding admission. Discussed patients ED course, exam findings, labs, and radiology results. The Hospitalist [agrees] to accept the patient for admission. Disposition Plan Disposition Plan: Admit Discharge Plan Plan Patient Disposition: Admit Acute Care w/in Hospital Disposition Comment: Stable Prescriptions/Referrals Prescriptions/Med Rec: No Action citalopram [Celexa] 20 mg Tablet 20 mg PO QDAY Qty: 0 atorvastatin 80 mg Tablet 80 mg PO QDAY donepezil 10 mg Tablet 10 mg PO QDAY aspirin 81 mg Tablet,Delayed Release (Dr/Ec) 81 mg PO QDAY pantoprazole 40 mg Tablet,Delayed Release (Dr/Ec) 40 mg PO QDAY aripiprazole [Abilify] 20 mg Tablet 20 mg PO QDAY metformin 1,000 mg tablet 1,000 mg PO BID benztropine 2 mg tablet 2 mg PO BID memantine 10 mg Tablet 10 mg PO BID Brilinta 90 mg Tablet 90 mg PO BID benzonatate 100 mg Capsule 100 mg PO TID PRN (Reason: Cough) polyethylene glycol 3350 [Miralax] 17 gram Powder In Packet 17 g PO QDAY Qty: 30 0RF glipizide 5 mg Tablet Extended Release 24hr 5 mg PO QDAY gabapentin 300 mg Tablet 300 mg PO TID pantoprazole 40 mg Tablet,Delayed Release (Dr/Ec) 40 mg PO BID Qty: 60 2RF ondansetron 4 mg tablet,disintegrating 4 mg PO Q8H Qty: 10 0RF Referrals: Andre Lane MD [Primary Care Provider] - In 1 week Problem List Clinical Impression: Altered mental status, Dizziness, Acute hyponatremia Patient/Caregiver Discharge Instructions Print Language: Alec Stand Alone Forms: Sabrina Award Info., Patient Portal Info Letter
[2024-11-13 13:06] LABS: Lactate (Lactic Acid) 1.5 mMol/L (0.4-2.0)
[2024-11-13 13:08] LABS: Collection Type, Urine Clean Catch
[2024-11-13 13:10] LABS: Basophils % (Auto) 0 % (0-2.5); Eosinophils % (Auto) 1 % (0-10); Hematocrit 28.8 % (36.0-46.0); Hemoglobin 10.1 g/dL (12.0-16.0); Immature Granulocytes % (Auto) 0 % (0-0); Immature Granulocytes Auto 0.03 Thou/mm3 (0.00-0.00); Lymphocytes % (Auto) 29 % (10-50); Mean Corpuscular HGB Conc 35.1 g/dl (31.0-37.0); Mean Corpuscular Hemoglobin 24.7 pg (25.0-35.0); Mean Corpuscular Volume 70 fL (80-100); Monocytes # (Auto) 0.5 Thou/mm3 (0.0-0.8); Monocytes % (Auto) 8 % (0-12); Neutrophils # (Auto) 4.2 Thou/mm3 (1.8-7.7); Neutrophils % (Auto) 62 % (37-80); Nucleated Red Blood Cell % 0 /100 WBC (0); Platelet Count 252 Thou/mm3 (140-440); RDW Standard Deviation 35.6 fL (36.4-46.3); Red Blood Count 4.09 Miln/mm3 (4.00-5.20); White Blood Count 6.8 Thou/mm3 (3.6-11.0)
[2024-11-13 13:15] LABS: Bacteria,Urine Rare; Bilirubin,Urine Negative (Negative); Blood,Urine Negative (Negative); Clarity,Urine Clear (Clear/Hazy); Color,Urine Colorless (Lt Yel-Yel); Glucose, Urine Negative (Negative); Ketones,Urine Negative (Negative); Leukocyte Esterase,Urine Negative (Negative); Nitrite,Urine Negative (Negative); Protein,Urine Trace (Neg - Trace); RBC,Urine < 1 /hpf (0-3); Specific Gravity,Urine 1.005 (1.001-1.035); Squamous Epithelial Cell,Urine < 1 /hpf (0-5); Urobilinogen,Urine Negative mg/dL (0.0-1.0); WBC,Urine < 1 /hpf (0-5)
[2024-11-13 13:26] LABS: Partial Thromboplastin Time 28.1 Seconds (22.0-36.0); Prothrombin Time 11.2 Seconds (9.0-12.2)
[2024-11-13 13:36] LABS: Alanine Aminotransferase 16 U/L (10-49); Albumin, Serum 4.1 gm/dL (3.4-4.8); Albumin/Globulin Ratio 1.7 (1.2-2.2); Alkaline Phosphatase 58 U/L (46-116); Anion Gap 9 (7-16); Aspartate Amino Transferase 19 U/L (0-34); BUN/Creatinine Ratio 13 Ratio (12-20); Bilirubin,Total 0.5 mg/dL (0.3-1.2); Blood Urea Nitrogen 20 mg/dL (9-23); Calcium 9.4 mg/dL (8.3-10.6); Calcium (Corrected) 9.4 mg/dL (8.5-10.1); Carbon Dioxide 22.6 mMol/L (20.0-31.0); Chloride 93 mMol/L (98-107); Creatinine (Component) 1.5 mg/dL (0.6-1.3); Estimated Creatinine Clearance 23.3 mL/min (>60); Globulin 2.4 gm/dL (2.3-3.5); Glucose 86 mg/dL (74-106); LDH (Lactate Dehydrogenase) 157 U/L (120-246); Lipase 50 U/L (12-53); Magnesium 1.3 mg/dL (1.6-2.6); Osmolality,Calculated 253 (275-295); Phosphorous 4.8 mg/dL (2.4-5.1); Potassium 4.3 mMol/L (3.4-5.1); Procalcitonin 0.05 ng/ml (0.0-0.49); Sodium 125 mMol/L (136-145); Total Protein 6.5 gm/dL (5.7-8.2); Troponin I < 0.020 ng/mL (0.0-0.045); eGFR 36 See Note
[2024-11-13 13:44] LABS: B-Type Natriuretic Peptide < 20 pg/mL (0-100)
[2024-11-13] MEDS: SODIUM CHLORIDE 0.9% 1000 ML 1,000 ML 999 ML IV (16:21)
[2024-11-13] MEDS: Magnesium Sulfate 2 GM Ivpb 2 GM/50 ML BAG IV ×2 (16:21→19:32)
--- NOTE | 2024-11-13 18:49 | PD.RESHP ---
Documentation for date of: 11/13/24 [facility] History of Present Illness History of present illness: Ms. Disla is a 74-year-old female with past medical history significant for type 2 diabetes, CKD, chronic anemia, depression, dementia and coronary artery disease status post 1 stent in 2019 on Brilinta presents to the ED after ground-level fall. Patient's daughter is at bedside who stated 2 days ago she noticed that patient had slurred speech and increasing weakness and increasing confusion therefore her daughter brought her a walker which she started using and fell dizziness and her knees gave up and had a ground-level fall where she hit her head. Daughter also stated that her mother could not recognize her for approximately 10 minutes after the fall. Per daughter patient continued to have intermittent confusion and inability to recognize her daughter and could not remember her name. Daughter also stated that her mom has been having this diarrhea for the past 5 to 6 weeks which is followed by eating and the diarrhea stopped 2 days ago. Denied any travel history, melena or hematochezia. Per daughter patient was also influenza B positive for which she underwent 2 rounds of Tamiflu. Patient also complains of increasing nausea but denies any vomiting. Patient denies any chest pain palpitation orthopnea or any changes in her vision. Patient also denies any abdominal pain dysuria or urinary urgency. ED course In the ED patient's initial blood pressure was 177/97, heart rate 79, saturating on room air, labs were significant for hemoglobin 10.1, hematocrit 28.8, MCV 70, MCH 24.7, chloride 93, creatinine 1.5, GFR 36, magnesium 1.3. In the ED patient received 2 g of magnesium and 1 L normal saline bolus PMH: T2DM, CKD, Anemia, CAD s/p 1 stent, dementia, depression PSH: cholesytectomy SH: denies smoking tobacco, denies alcohol or drug use Home Meds: Benztropine 2 mg twice daily, pantoprazole 40 mg daily, metformin 1000 mg twice daily, Brilinta 90 mg twice daily, memantine 10 mg twice daily, aspirin 81 mg daily citalopram 20 mg daily, donepezil 10 mg daily aripiprazole 20 mg daily, MgCl + Ca Allergies: Penicillin Review of Systems Review of Systems Systems Reviewed: All systems reviewed, normal except as documented Exam Vital Signs Temp Pulse Resp BP Pulse Ox O2 Del Method 97.7 F 76 18 141/68 H 99 Room Air 11/13/24 18:39 11/13/24 18:39 11/13/24 18:39 11/13/24 18:39 11/13/24 18:39 11/13/24 18:39 Narrative Exam GENERAL: A&Ox3 . Awake, Not in acute distress NEURO: no focal neurological deficits HEENT: Atraumatic, Normocephalic. mucous membranes moist. Eyes open, symmetrical, & clear HEART: Normal Heart Sounds LUNGS: Clear to auscultation with no wheezing or crackles. ABDOMEN: soft, non-distended, non-tender, bowel sounds heard, no guarding or rebound tenderness SKIN: No Rash or ecchymoses EXTREMITIES: No edema, tenderness, able to move all 4 extremities, pedal pulses palpated NEURO:? ? MENTAL STATUS:?AAOx0, Pt is unable to remember her name, nor recognizes her daughter at bedside ? LANG/SPEECH: slow speech, minimally engaging in conversation ? CRANIAL NERVES: ? II: Pupils equal and reactive, no RAPD,?normal visual field and fundus ? III, IV, : EOM intact, no gaze preference or deviation ? V: normal ? VII: no facial asymmetry ? VIII: normal hearing to speech ? MOTOR: 4/5 in both upper and lower extremities ? SENSORY: Normal to touch, temperature & pin prick in all extremiteis ? COORD: no tremor, no dysmetria Results: Labs 11/14/24 03:19 11/14/24 14:07 Labs: Short CBC 11/13/24 Range/Units 12:55 WBC 6.8 (3.6-11.0) Thou/mm3 Hgb 10.1 L (12.0-16.0) g/dL Hct 28.8 L (36.0-46.0) % Plt Count 252 D (140-440) Thou/mm3 BMP 11/13/24 12:55 Sodium 125 L Potassium 4.3 Chloride 93 L Carbon Dioxide 22.6 BUN 20 Creatinine 1.5 H Glucose 86 Calcium 9.4 Cardiac Enzymes 11/13/24 Range/Units 12:55 Troponin I < 0.020 (0.0-0.045) ng/mL Liver Function 11/13/24 Range/Units 12:55 Total Bilirubin 0.5 (0.3-1.2) mg/dL AST 19 (0-34) U/L ALT 16 (10-49) U/L Alkaline Phosphatase 58 (46-116) U/L Albumin 4.1 (3.4-4.8) gm/dL Urine 11/13/24 Range/Units 13:00 Urine Color Colorless A (Lt Yel-Yel) Urine Clarity Clear (Clear/Hazy) Urine pH 5.0 (5.0-7.0) Ur Specific [place] 1.005 (1.001-1.035) Urine Protein Trace (Neg - Trace) Urine Glucose (UA) Negative (Negative) Quality Measures Quality Measures none Advance care planning discussed with:: patient Medications Home Medications and Allergies Home Medications ?Medication ?Instructions ?Recorded ?Confirmed ?Type citalopram 20 mg tablet (Celexa) 20 mg PO QDAY #0 tabs 06/04/14 11/13/24 History benztropine 2 mg tablet 2 mg PO BID 04/09/19 11/13/24 History memantine 10 mg tablet 10 mg PO BID 10/29/19 11/13/24 History ticagrelor 90 mg tablet (Brilinta) 90 mg PO BID 10/29/19 11/13/24 History Held on 11/05/23. Instructions: Resume on 11/12/23. Patient at this time is at high risk of serious bleeding. Resume Brilinta on the October, aspirin 81 mg tablet,delayed 81 mg PO QDAY 02/20/20 11/13/24 History release atorvastatin 80 mg tablet 80 mg PO QDAY 02/20/20 11/13/24 History donepezil 10 mg tablet 10 mg PO QDAY 02/20/20 11/13/24 History pantoprazole 40 mg tablet,delayed 40 mg PO QDAY 02/20/20 11/13/24 History release aripiprazole 20 mg tablet (Abilify) 20 mg PO QDAY 03/14/21 11/13/24 History metformin 1,000 mg tablet 1,000 mg PO BID 09/05/21 11/13/24 History Allergies Allergy/AdvReac Type Severity Reaction Status Date / Time Penicillins Allergy Severe CANT Verified 11/09/24 10:57 BREATHE Visit Medications Acetaminophen (Acetaminophen 325 Mg Tablet) 650 mg PO Q6H PRN PRN Reason: Fever >101.5 Stop: 12/13/24 18:02 Aspirin (Aspirin Ec 81 Mg Tabec) 81 mg PO QDAY JOSHUA Stop: 12/14/24 08:59 Atorvastatin Calcium (Atorvastatin Calcium 20 Mg Tablet) 80 mg PO HS [facility] Stop: 12/13/24 20:59 Dextrose (Dextrose 50%-Water Inj 50 Ml Syringe) 25 ml IV Q15MIN PRN PRN Reason: BG 50-70 responsive npo pt Stop: 12/13/24 18:24 Dextrose (Dextrose 50%-Water Inj 50 Ml Syringe) 50 ml IV Q15MIN PRN PRN Reason: BG <50 OR BG <70 & pt unresponsive Stop: 12/13/24 18:24 Glucagon (Glucagon Inj 1 Mg Vial) 1 mg IM Q15MIN PRN PRN Reason: BG <70, and no IV access Sodium Chloride 500 ml/ IV (Miscellaneous Supplies) 500 mls @ 25 mls/hr IV X1 ONE Stop: 11/14/24 14:17 Magnesium Sulfate (Magnesium Sulfate Ivpb) 2 gm in 50 mls @ 25 mls/hr IV X1 ONE Stop: 11/13/24 20:21 Insulin Human Lispro (Insulin Lispro (Admelog) 1 Unit/0.01 Ml Unit) 0 unit SC AC [facility]; Protocol Stop: 12/14/24 07:29 Ondansetron HCl (Ondansetron Inj 2 Mg/Ml Inj 2 Ml) 4 mg IV Q6H PRN; Protocol PRN Reason: NAUSEA OR VOMITING Stop: 12/13/24 18:02 Pantoprazole Sodium (Pantoprazole Inj 40 Mg Vial) 40 mg IVP QDAY [facility] Stop: 12/14/24 08:59 Ticagrelor (Ticagrelor 90 Mg Tablet) 90 mg PO BID [facility] Stop: 12/13/24 20:59 Discontinued Medications Sodium Chloride (Ns) 1,000 mls @ 999 mls/hr IV .Q1H1M ONE Stop: 11/13/24 17:05 Last Admin: 11/13/24 16:21 Dose: 999 mls/hr Magnesium Sulfate (Magnesium Sulfate Ivpb) 2 gm in 50 mls @ 25 mls/hr IV X1 ONE Stop: 11/13/24 18:04 Last Infusion: 11/13/24 18:30 Dose: Infused Assessment & Plan Plan Ms. Disla is a 74-year-old female with past medical history significant for type 2 diabetes, CKD, chronic anemia, depression, dementia and coronary artery disease status post 1 stent in 2019 on Brilinta presents to the ED after ground-level fall, altered mental status, slurred speech and increasing confusion. #Symptomatic hyponatremia #Hypoosmolar Euvolemic -On admission pt is increasingly confused and is unable to recall her name nor her daughters name at bedside. -Pt's daughter states she was having diarrhea for 5-6 weeks and does not consume any salt in diet. -on admission sodium is 125 -Pt is given 1L bolus NS in the ED -urine electrolytes ordered -Hypertonic saline at 25ml/hr is started -Sodium checks Q4H, goal Na 131 for tomorrow 1 pm #Chroni Diarrhea -Per daughter Pt has been having diarrhea for 5-6 weeks. Pt did not take any antibitics recently other than tamiflu x2 course for influenzaB -Diarrhea stopped 2 days ago, denies melena or hematochezia and denies abdominal pain -Stool culture, stool study, and giardia ordered #ALISSA on CKD lllB -Baseline creatinine is 1.1 and GFR 47 -On admission creatinine 1.5 and GFR 36 -Pt has history of CKD and follows Dr. Hernesto Velasquez outpatient #Acute on chronic encepholapathy #?Acute CVA #Dementia #Depression DDx. acute CVA, progressive dementia, metabolic and or combination -Per daughter patient has become increasingly confused altered and had slurred speech 2 days ago. Patient is unable to recall her name or daughter's name and cannot recognize the daughter or any details about self. -Patient has history of dementia and diabetes -Home medications include donepezil, memantine, aripiprazole -Due to altered mental status we will hold all home medications and monitor for improvement in mentation before resuming -CT of head is negative for acute hemorrhage Plan: -Neurologist consulted, appreciate recommendations -MRI without contrast ordered -echo with bubble study ordered -PT/speech, seizure precaution, head of bed elevated to 30 degrees, neuro checks Q4h #Type 2 Diabetes Mellitus -A1c 6.8 on 11/02/2023 -Home medications include metformin 1000 mg twice daily -Insulin sliding scale ordered -A1c from morning labs ordered #Microcytic Anemia On admission hemoglobin is 10.1, hematocrit 28.1, MCV 70, MCH 24.7 -per daughter Pt gets B12 SC every 2 weeks -No signs of acute bleeding, pt denies melena and hematochezia -Iron panel ordered for am labs #CAD s/p stent -Pt underwent stent placement with Dr. Cifuentes in 2019 -Pt missed follow up appointment on -resumed home brilinta and aspirin Health Maintenance Disposition: telemetry DVT Prophylaxis: Heparin 5000 units SC Q12 hrs GI Prophylaxis: Pantoprozol-40 IV Qday Diet: NPO until nurse swallow screen and speech eval Lines: Peripheral lines Code status: Full Assessment and plan discussed with my attending physician Dr. Rona Hernandez (PGY-1)- Internal medicine resident Attending Provider Attestation/Addendum I have discussed and was present for the essential components of the history, physical examination, diagnosis, and treatment plan with the resident. I agree with the patient's care as documented by the resident and amended herein by me. Wilfredo Rea DO. Patient seen and evaluated in the ED. 74-year-old female with a significant past medical history of CAD status post stenting in 2019 presently on aspirin and Brilinta, type 2 diabetes, chronic anemia, dementia and CKD, presented to the emergency department for 2 days of acute encephalopathy per the patient's daughter who was at bedside. Slurred speech was also noted. The patient apparently did have a fall and hit her head as well. It was also noted that for approximately the past month, the patient has had persistent diarrhea which is only cleared up approximately 2 days ago according to the patient's daughter. The patient was diagnosed with influenza B and treated twice in the outpatient setting over the last month. The patient's daughter also stated she caught this from her mother and also had diarrhea however it is since resolved. Upon arrival, the patient's vital signs were stable, the patient was afebrile, urinalysis was positive, significant labs include a hemoglobin 10.1, sodium low at 125, BUN 20 and creatinine 1.5. Chest x-ray was unremarkable, all other imaging was unremarkable. Will admit the patient to acute telemetry at this time, neurology was consulted in the ED, CT head was in fact performed and negative, considering the timeframe, we will order an MRI/MRA. I do think her acute encephalopathy may be metabolic in nature considering her low sodium, possibly from dehydration and her diarrhea over extended period of time. This may also explain her ALISSA. Considering the acute nature of her encephalopathy, in setting of hyponatremia, we will start 3% saline with every 4 hour sodium checks until we are back in the normal range and can reassess her function. We will also follow-up with all neurological imaging, we appreciate neurology recommendations. An echo is pending, urine lites will be ordered, physical therapy ordered, strict I's and O's ordered, blood and urine cultures were ordered in the ED, and iron panel was also ordered and which we will follow-up with. Will continue to monitor the patient closely. Although this document has been carefully reviewed, there may still be some phonetic and other typographical errors. These errors are purely grammatical due to imperfections in the software program and should not be construed in any way to compromise the substance of the patient's medical care during this visit.
[2024-11-13] MEDS: SODIUM CHLORIDE 3%(Hypertonic) 500 ML in PRE-MIXED 1 BAG 25 ML IV (19:32)
[2024-11-13 19:44] LABS: Sodium 136 mMol/L (136-145)
--- NOTE | 2024-11-13 20:40 | PC.NURSE ---
1000ml urine output
[2024-11-13] MEDS: TICAGRELOR 90 MG TABLET PO (20:46)
[2024-11-13] MEDS: HEPARIN SOD INJ 5000 UNIT/ML VIAL SC (20:46)
[2024-11-13] MEDS: ATORVASTATIN CALCIUM 20 MG TABLET 80 MG PO (20:46)
[2024-11-13 20:55] LABS: Ferritin 94 ng/mL (7.3-270.7); Iron 27 mcg/dL (50-170); Percent Iron Saturation 10 % (20-55); Total Iron Binding Capacity 265 mcg/dL (250-425); Unsaturated Iron Binding 238 (225-295)
[2024-11-13 21:14] LABS: Sodium 136 mMol/L (136-145)
[2024-11-13 21:18] LABS: Chloride,Urine Random 40.2 mMol/L (55.0-125.0); Potassium,Urine Random < 10 mMol/L (12-62); Sodium,Urine Random 41.3 mMol/L (20.0-110.0)
--- NOTE | 2024-11-13 21:24 | PD.NEUROCONS ---
History of Present Illness Data of Consult Requesting Physician: Thor Rea DO Primary Care Provider: Andre Lane MD Consult Narrative cc:: cc: Thor Rea, DO Meds Home Medications and Allergies Home Medications ?Medication ?Instructions ?Recorded ?Confirmed ?Type citalopram 20 mg tablet (Celexa) 20 mg PO QDAY #0 tabs 06/04/14 11/03/23 History benztropine 2 mg tablet 2 mg PO BID 04/09/19 11/03/23 History memantine 10 mg tablet 10 mg PO BID 10/29/19 11/03/23 History ticagrelor 90 mg tablet (Brilinta) 90 mg PO BID 10/29/19 11/03/23 History Held on 11/05/23. Instructions: Resume on 11/12/23. Patient at this time is at high risk of serious bleeding. Resume Brilinta on the October, aspirin 81 mg tablet,delayed 81 mg PO QDAY 02/20/20 11/02/23 History release Held on 11/05/23. Instructions: Resume on 12/04/23. Aspirin increase the risk of bleeding at this time. Resume on the November atorvastatin 80 mg tablet 80 mg PO QDAY 02/20/20 11/03/23 History donepezil 10 mg tablet 10 mg PO QDAY 02/20/20 11/03/23 History pantoprazole 40 mg tablet,delayed 40 mg PO QDAY 02/20/20 11/03/23 History release aripiprazole 20 mg tablet (Abilify) 20 mg PO QDAY 03/14/21 11/03/23 History metformin 1,000 mg tablet 1,000 mg PO BID 09/05/21 11/03/23 History benzonatate 100 mg capsule 100 mg PO TID PRN Cough 10/25/23 11/03/23 History gabapentin 300 mg tablet 300 mg PO TID 11/02/23 11/02/23 History glipizide 5 mg tablet, extended 5 mg PO QDAY 11/02/23 11/02/23 History release 24 hr Allergies Allergy/AdvReac Type Severity Reaction Status Date / Time Penicillins Allergy Severe CANT Verified 11/09/24 10:57 BREATHE Exam - Neurology Vital Signs Temp Pulse Resp BP Pulse Ox O2 Del Method O2 Flow Rate 97.9 F 74 17 132/92 H 100 Room Air 100 11/13/24 19:23 11/13/24 20:13 11/13/24 20:13 11/13/24 19:23 11/13/24 19:23 11/13/24 19:23 11/13/24 19:28 Results Labs 11/13/24 12:55 11/13/24 20:33 Labs: Short CBC 11/13/24 Range/Units 12:55 WBC 6.8 (3.6-11.0) Thou/mm3 Hgb 10.1 L (12.0-16.0) g/dL Hct 28.8 L (36.0-46.0) % Plt Count 252 D (140-440) Thou/mm3 BMP 11/13/24 11/13/24 11/13/24 12:55 18:39 20:33 Sodium 125 L 136 D 136 Potassium 4.3 Chloride 93 L Carbon Dioxide 22.6 BUN 20 Creatinine 1.5 H Glucose 86 Calcium 9.4 Cardiac Enzymes 11/13/24 Range/Units 12:55 Troponin I < 0.020 (0.0-0.045) ng/mL Liver Function 11/13/24 Range/Units 12:55 Total Bilirubin 0.5 (0.3-1.2) mg/dL AST 19 (0-34) U/L ALT 16 (10-49) U/L Alkaline Phosphatase 58 (46-116) U/L Albumin 4.1 (3.4-4.8) gm/dL Urine 11/13/24 Range/Units 13:00 Urine Color Colorless A (Lt Yel-Yel) Urine Clarity Clear (Clear/Hazy) Urine pH 5.0 (5.0-7.0) Ur Specific [place] 1.005 (1.001-1.035) Urine Protein Trace (Neg - Trace) Urine Glucose (UA) Negative (Negative)
[2024-11-13 23:41] LABS: Sodium 136 mMol/L (136-145)
[2024-11-14] VITALS (9 sets, daily range): BP systolic 109–157; BP diastolic 73–93; PULSE 68–88; RESP 16–99; TEMP 36.2–36.7; O2SAT 96–99; BMI 22.4; BMI 13.0
--- NOTE | 2024-11-14 | XR_ITS ---
Examinations: MRI Brain without intravenous contrast. MRA brain without intravenous contrast. MRA carotids without intravenous contrast 3-D vascular reconstructions Date and time of exam: November 14, 2024 at 1750 hours INDICATIONS: Diagnosis encephalopathy, altered mental status increasing confusion this week slurred speech Technique: Multiple axial and sagittal images of the brain have been obtained MRA brain carotid images without contrast obtained, including 3-D postprocessing, vascular maximum intensity projection images Findings: [place] is not enlarged. The optic chiasm and infundibular stalk are not remarkable. Prepontine and interpeduncular cisterns are not enlarged. No localized enlargement of the medulla or nicol. Fourth ventricle and cerebellar tonsils normal in position. Subacute hemorrhage is not seen. Fourth ventricle is midline. Mass in the cerebellopontine angle region is not evident. 7th and 8th nerve complexes exhibits symmetry. Globes are symmetrical with no retro-orbital mass. Increased white matter signal mild Diffusion-weighted images demonstrate no focus of restricted diffusion Mass-effect upon the ventricular system is not identified. MRA brain images no cerebral large vessel occlusions or thrombus Impression: Negative for acute hemorrhage mass effect or midline shift No acute infarct Mild chronic microvascular white matter change No cerebral large vessel arterial occlusions
[2024-11-14 01:08] LABS: Iron 28 mcg/dL (50-170); Percent Iron Saturation 10 % (20-55); Total Iron Binding Capacity 274 mcg/dL (250-425); Unsaturated Iron Binding 246 (225-295)
[2024-11-14] MEDS: DEXTROSE 5%-WATER 1,000 ML 100 ML IV (02:29)
[2024-11-14 03:52] LABS: Basophils % (Auto) 1 % (0-2.5); Eosinophils # (Auto) 0.1 Thou/mm3 (0.0-0.5); Eosinophils % (Auto) 1 % (0-10); Hematocrit 27.3 % (36.0-46.0); Hemoglobin 9.8 g/dL (12.0-16.0); Immature Granulocytes % (Auto) 0 % (0-0); Immature Granulocytes Auto 0.01 Thou/mm3 (0.00-0.00); Lymphocytes # (Auto) 1.3 Thou/mm3 (1.0-4.8); Lymphocytes % (Auto) 22 % (10-50); Mean Corpuscular HGB Conc 35.9 g/dl (31.0-37.0); Mean Corpuscular Hemoglobin 25.9 pg (25.0-35.0); Mean Corpuscular Volume 72 fL (80-100); Monocytes # (Auto) 0.4 Thou/mm3 (0.0-0.8); Monocytes % (Auto) 8 % (0-12); Neutrophils % (Auto) 68 % (37-80); Nucleated Red Blood Cell % 0 /100 WBC (0); Platelet Count 305 Thou/mm3 (140-440); RDW Standard Deviation 37.1 fL (36.4-46.3); Red Blood Count 3.79 Miln/mm3 (4.00-5.20); White Blood Count 5.8 Thou/mm3 (3.6-11.0)
[2024-11-14 04:12] LABS: Glucose Estimated Average 160 mg/dL (80-131); Hemoglobin A1C 7.2 % Hgb (4.8-6.0)
[2024-11-14 04:19] LABS: Alanine Aminotransferase 15 U/L (10-49); Albumin, Serum 3.8 gm/dL (3.4-4.8); Albumin/Globulin Ratio 1.7 (1.2-2.2); Alkaline Phosphatase 53 U/L (46-116); Anion Gap 9 (7-16); Aspartate Amino Transferase 24 U/L (0-34); BUN/Creatinine Ratio 12 Ratio (12-20); Bilirubin,Total 0.6 mg/dL (0.3-1.2); Blood Urea Nitrogen 17 mg/dL (9-23); Calcium 9.2 mg/dL (8.3-10.6); Calcium (Corrected) 9.4 mg/dL (8.5-10.1); Carbon Dioxide 25.2 mMol/L (20.0-31.0); Chloride 101 mMol/L (98-107); Creatinine (Component) 1.4 mg/dL (0.6-1.3); Globulin 2.3 gm/dL (2.3-3.5); Glucose 123 mg/dL (74-106); Magnesium 2.4 mg/dL (1.6-2.6); Osmolality,Calculated 272 (275-295); Phosphorous 5.2 mg/dL (2.4-5.1); Potassium 4.2 mMol/L (3.4-5.1); Sodium 135 mMol/L (136-145); Total Protein 6.1 gm/dL (5.7-8.2); Troponin I < 0.020 ng/mL (0.0-0.045); eGFR 39 See Note
[2024-11-14] MEDS: HEPARIN SOD INJ 5000 UNIT/ML VIAL SC ×2 (09:30→21:45)
[2024-11-14] MEDS: ASPIRIN EC 81 MG TABEC PO (09:30)
[2024-11-14] MEDS: PANTOPRAZOLE INJ 40 MG VIAL IVP (09:30)
[2024-11-14] MEDS: TICAGRELOR 90 MG TABLET PO ×2 (09:30→21:45)
[2024-11-14 10:16] LABS: Sodium 132 mMol/L (136-145)
--- NOTE | 2024-11-14 14:22 | PD.RESPRO ---
Documentation for date of: 11/14/24 Subjective Subjective Interval history: Patient seen and examined this morning with daughter at bedside, available to translate [place]. Overnight, patient's sodium improved, was 135 on a.m. labs. Creatinine with mild improvement, 1.4. Patient appears weak and daughter states she is still intermittently encephalopathic and not at her full baseline from approximately 1 month ago. Pending MRI, echo, neuro recs, stool/infectious workup, TSH/fT4. Will continue monitor sodium every 4 hours and if downtrend begins, will start sodium chloride tablets. Exam Vital Signs Temp Pulse Resp BP Pulse Ox O2 Del Method O2 Flow Rate 97.2 F 81 19 130/73 96 Room Air 100 11/14/24 11:54 11/14/24 12:00 11/14/24 11:54 11/14/24 11:54 11/14/24 11:54 11/14/24 11:54 11/13/24 19:28 Narrative Exam GENERAL: Awake, alert but speaks very softly or not at all NEURO: CN 2-12 intact; decreased sensation on left side of body; decreased strength in left shoulder HEENT: Atraumatic, Normocephalic. mucous membranes moist. Eyes open, symmetrical, & clear HEART: Normal Heart Sounds LUNGS: Clear to auscultation with no wheezing or crackles. ABDOMEN: soft, non-distended, non-tender, bowel sounds heard, no guarding or rebound tenderness SKIN: some bruising noted on BLE EXTREMITIES: No edema, tenderness, able to move all 4 extremities, pedal pulses palpated Objective Labs 11/14/24 03:19 11/14/24 14:07 Labs: Laboratory Results - last 24 hr 11/13/24 11/13/24 11/13/24 18:39 19:25 20:33 WBC RBC Hgb Hct MCV MCH MCHC RDW Std Deviation Plt Count Neut % (Auto) Lymph % (Auto) [place] % (Auto) Eos % (Auto) Baso % (Auto) Neut # (Auto) Lymph # (Auto) [place] # (Auto) Eos # (Auto) Baso # (Auto) Immature Gran # (Auto) Absolute Nucleated RBC Immature Gran % Nucleated RBC % Sodium 136 D 136 Potassium Chloride Carbon Dioxide Anion Gap BUN Creatinine Estim Creat Clear Calc eGFR BUN/Creatinine Ratio Glucose Estimated Ave Glu mg/dL Hemoglobin A1c Calculated Osmolality Calcium Corrected Calcium Phosphorus Magnesium Iron 27 L TIBC 265 Iron Saturation 10 L Unsat Iron Binding 238 Ferritin 94 Total Bilirubin AST ALT Alkaline Phosphatase Troponin I Total Protein Albumin Globulin Albumin/Globulin Ratio Ur Random Sodium Ur Random Potassium Ur Random Chloride Blood Type O Positive Antibody Screen NEGATIVE Blood Bank Wristband ID Yes 11/13/24 11/13/24 11/14/24 20:45 23:05 03:19 WBC 5.8 RBC 3.79 L Hgb 9.8 L Hct 27.3 L MCV 72 L MCH 25.9 MCHC 35.9 RDW Std Deviation 37.1 Plt Count 305 D Neut % (Auto) 68 Lymph % (Auto) 22 [place] % (Auto) 8 Eos % (Auto) 1 Baso % (Auto) 1 Neut # (Auto) 4.0 Lymph # (Auto) 1.3 [place] # (Auto) 0.4 Eos # (Auto) 0.1 Baso # (Auto) 0.0 Immature Gran # (Auto) 0.01 H Absolute Nucleated RBC 0.00 Immature Gran % 0 Nucleated RBC % 0 Sodium 136 135 L Potassium 4.2 Chloride 101 Carbon Dioxide 25.2 Anion Gap 9 BUN 17 Creatinine 1.4 H Estim Creat Clear Calc 25.0 L eGFR 39 L BUN/Creatinine Ratio [address] Glu mg/dL 160 H Hemoglobin A1c 7.2 H Calculated Osmolality 272 L Calcium 9.2 Corrected Calcium 9.4 Phosphorus 5.2 H Magnesium 2.4 Iron 28 L TIBC 274 Iron Saturation 10 L Unsat Iron Binding 246 Ferritin Total Bilirubin 0.6 AST 24 ALT 15 Alkaline Phosphatase 53 Troponin I < 0.020 Total Protein 6.1 Albumin 3.8 Globulin 2.3 Albumin/Globulin Ratio 1.7 Ur Random Sodium 41.3 Ur Random Potassium < 10 L Ur Random Chloride 40.2 L Blood Type Antibody Screen Blood Bank Wristband ID 11/14/24 09:50 WBC RBC Hgb Hct MCV MCH MCHC RDW Std Deviation Plt Count Neut % (Auto) Lymph % (Auto) [place] % (Auto) Eos % (Auto) Baso % (Auto) Neut # (Auto) Lymph # (Auto) [place] # (Auto) Eos # (Auto) Baso # (Auto) Immature Gran # (Auto) Absolute Nucleated RBC Immature Gran % Nucleated RBC % Sodium 132 L Potassium Chloride Carbon Dioxide Anion Gap BUN Creatinine Estim Creat Clear Calc eGFR BUN/Creatinine Ratio Glucose Estimated Ave Glu mg/dL Hemoglobin A1c Calculated Osmolality Calcium Corrected Calcium Phosphorus Magnesium Iron TIBC Iron Saturation Unsat Iron Binding Ferritin Total Bilirubin AST ALT Alkaline Phosphatase Troponin I Total Protein Albumin Globulin Albumin/Globulin Ratio Ur Random Sodium Ur Random Potassium Ur Random Chloride Blood Type Antibody Screen Blood Bank Wristband ID Quality Measures Quality Measures VTE prophylaxis Advance care planning discussed with:: patient and child Assessment & Plan Assessment Current Active Medications: Generic Name Dose Route Start Last Admin Trade Name Freq PRN Reason Stop Dose Admin Acetaminophen 650 mg 11/14/24 07:06 Acetaminophen 325 Mg Tablet PO 12/13/24 18:02 Q6H PRN Fever >100.3 Aspirin 81 mg 11/14/24 09:00 11/14/24 09:30 Aspirin Ec 81 Mg Tabec PO 12/14/24 08:59 81 mg QDAY JOSHUA Administration Atorvastatin Calcium 80 mg 11/13/24 21:00 11/13/24 20:46 Atorvastatin Calcium 20 Mg Tablet PO 12/13/24 20:59 80 mg HS JOSHUA Administration Dextrose 25 ml 11/13/24 18:25 Dextrose 50%-Water Inj 50 Ml Syringe IV 12/13/24 18:24 Q15MIN PRN BG 50-70 responsive npo pt Dextrose 50 ml 11/13/24 18:25 Dextrose 50%-Water Inj 50 Ml Syringe IV 12/13/24 18:24 Q15MIN PRN BG <50 OR BG <70 & pt unresponsive Glucagon 1 mg 11/13/24 18:25 Glucagon Inj 1 Mg Vial IM Q15MIN PRN BG <70, and no IV access Heparin Sodium (Porcine) 5,000 unit 11/13/24 20:30 11/14/24 09:30 Heparin Sod Inj 5000 Unit/Ml Vial SC 11/27/24 20:29 5,000 unit Q12H JOSHUA Administration Insulin Human Lispro 0 unit 11/14/24 07:30 11/14/24 11:26 Insulin Lispro (Admelog) 1 Unit/0.01 Ml Unit SC 12/14/24 07:29 Not Given AC JOSHUA Protocol Ondansetron HCl 4 mg 11/13/24 18:03 Ondansetron Inj 2 Mg/Ml Inj 2 Ml IV 12/13/24 18:02 Q6H PRN NAUSEA OR VOMITING Protocol Pantoprazole Sodium 40 mg 11/14/24 09:00 11/14/24 09:30 Pantoprazole Inj 40 Mg Vial IVP 12/14/24 08:59 40 mg QDAY JOSHUA Administration Ticagrelor 90 mg 11/13/24 21:00 11/14/24 09:30 Ticagrelor 90 Mg Tablet PO 12/13/24 20:59 90 mg BID JOSHUA Administration Plan Ms. Disla is a 74-year-old female with past medical history significant for type 2 diabetes, CKD, chronic anemia, depression, dementia and coronary artery disease status post 1 stent in 2019 on Brilinta presents to the ED after ground-level fall, altered mental status, slurred speech and increasing confusion. #Symptomatic hypoosmolar hyponatremia, improving -On admission pt is increasingly confused and is unable to recall her name nor her daughters name at bedside. -Pt's daughter states she was having diarrhea for 5-6 weeks and does not consume any salt in diet. -on admission sodium is 125; received 1 L NS in ED and started on 3% HTS => 3% HTS held due to sudden increase in sodium and 250 D5W given by overnight team. Sodium started to downtrend -Started 1 g NaCl tabs twice daily -Continue every 4 hours sodium -urine electrolytes: Sodium 41.3, potassium <10, chloride 40.2 -May consider consulting nephrology if sodium does not resolve #Recent diarrhea -Per daughter Pt has been having diarrhea for 5-6 weeks. Pt did not take any antibitics recently other than tamiflu x2 course for influenzaB -Diarrhea stopped 2 days ago, denies melena or hematochezia and denies abdominal pain -Stool culture, stool study, and giardia ordered #ALISSA on CKD lllB -Baseline creatinine is 1.1 and GFR 47 -On admission creatinine 1.5 and GFR 36 -Pt has history of CKD and follows Dr. Hernesto Velasquez outpatient 11/14: Mild improvement in creatinine #Acute on chronic encepholapathy #?Acute CVA #Dementia #Depression DDx. acute CVA, progressive dementia, metabolic, les likely infectious and or combination -Per daughter patient has become increasingly confused altered and had slurred speech 2 days ago. Patient is unable to recall her name or daughter's name and cannot recognize the daughter or any details about self. -Patient has history of dementia and diabetes -Home medications include donepezil, memantine, aripiprazole -Due to altered mental status we will hold all home medications and monitor for improvement in mentation before resuming -CT of head is negative for acute hemorrhage Plan: -Neurologist consulted, appreciate recommendations -Blood and urine cultures ordered to rule out infectious component -TSh, fT4 ordered -MRI/MRA without contrast ordered -echo with bubble study ordered -PT/speech, seizure precaution, head of bed elevated to 30 degrees, neuro checks Q4h Pending CVA rule out as cause of acute component of chronic encephalopathy, although patient is on DAPT so would be unlikely. May also be related to hyponatremia. #Type 2 Diabetes Mellitus -Hold home medications, metformin 1000 mg twice daily -Insulin sliding scale ordered -A1c 7.2 #Microcytic Anemia On admission hemoglobin is 10.1, hematocrit 28.1, MCV 70, MCH 24.7 -per daughter Pt gets B12 SC every 2 weeks -No signs of acute bleeding, pt denies melena and hematochezia -Iron panel: consistnet with [place] -Will start FeSO4 qOD #CAD s/p stent -Pt underwent stent placement with Dr. Cifuentes in 2019 -Pt missed follow up appointment on -resumed home brilinta and aspirin Health Maintenance Disposition: telemetry DVT Prophylaxis: Heparin 5000 units SC Q12 hrs GI Prophylaxis: Pantoprozol-40 IV Qday Diet: NPO until nurse swallow screen and speech eval Lines: Peripheral lines Code status: Full Patient seen and care discussed with my attending Dr. Rea. Mitch Zuñiga MD PGY-3 Attending Provider Attestation/Addendum I have discussed and was present for the essential components of the history, physical examination, diagnosis, and treatment plan with the resident. I agree with the patient's care as documented by the resident and amended herein by me. Wilfredo Rea, DO. Patient seen and evaluated this AM. No acute events overnight, vital signs stable, patient afebrile, no BMs recorded. Significant labs include a stable hemoglobin at 9.8, sodium did uptrend to 136 now 135., Creatinine downtrending to 1.5. Patient's daughters at bedside, stated that her mentation has improved today. I cannot explain the uptrend in sodium, the patient's 3% running at 25 mL/h was only on for an hour, the patient also received a 1 L bolus in the ED at time of admission. D5 was given overnight in light of the sharp uptrend. We will continue to follow-up with cultures, MRI/MRI brain pending, echo also pending, speech eval pending, neurology consulted, appreciate recommendations. Although this document has been carefully reviewed, there may still be some phonetic and other typographical errors. These errors are purely grammatical due to imperfections in the software program and should not be construed in any way to compromise the substance of the patient's medical care during this visit.
[2024-11-14 14:27] LABS: Sodium 131 mMol/L (136-145)
[2024-11-14] MEDS: SODIUM CHLORIDE 1 GM TABLET PO (15:40)
[2024-11-14 16:12] LABS: Free T4 (Free Thyroxine) 1.62 ng/dL (0.89-1.76); Thyroid Stimulating Hormone 0.72 uIU/mL (0.55-4.78)
[2024-11-14 19:21] LABS: Sodium 132 mMol/L (136-145)
[2024-11-14] MEDS: ATORVASTATIN CALCIUM 20 MG TABLET 80 MG PO (21:45)
[2024-11-14 22:22] LABS: Sodium 131 mMol/L (136-145)
--- NOTE | 2024-11-14 23:54 | PD.VPROG1 ---
Telemedicine visit statement This visit was conducted with the use of interactive audio and video telecommunications system that permits real time communication between the patient and the provider. Patient's verbal consent for virtual visit was obtained on 11/14/24 at 2354. Documentation for date of: 11/14/24 Subjective Subjective Interval history: Patient is in telemetry. No new symptoms reported. She is able to transfer to bedside commode. Her speech and balance have improved. Virtual exam Vital Signs Temp Pulse Resp BP Pulse Ox O2 Del Method O2 Flow Rate 98.0 F 78 20 132/91 H 97 Room Air 100 11/14/24 20:00 11/14/24 20:00 11/14/24 20:00 11/14/24 20:00 11/14/24 20:00 11/14/24 20:00 11/14/24 16:00 Objective Labs 11/14/24 03:19 11/14/24 21:56 Labs: Laboratory Results - last 24 hr 11/13/24 11/14/24 11/14/24 23:05 03:19 09:50 WBC 5.8 RBC 3.79 L Hgb 9.8 L Hct 27.3 L MCV 72 L MCH 25.9 MCHC 35.9 RDW Std Deviation 37.1 Plt Count 305 D Neut % (Auto) 68 Lymph % (Auto) 22 [place] % (Auto) 8 Eos % (Auto) 1 Baso % (Auto) 1 Neut # (Auto) 4.0 Lymph # (Auto) 1.3 [place] # (Auto) 0.4 Eos # (Auto) 0.1 Baso # (Auto) 0.0 Immature Gran # (Auto) 0.01 H Absolute Nucleated RBC 0.00 Immature Gran % 0 Nucleated RBC % 0 Sodium 135 L 132 L Potassium 4.2 Chloride 101 Carbon Dioxide 25.2 Anion Gap 9 BUN 17 Creatinine 1.4 H Estim Creat Clear Calc 25.0 L eGFR 39 L BUN/Creatinine Ratio 12 [address] Glu mg/dL 160 H Hemoglobin A1c 7.2 H Calculated Osmolality 272 L Calcium 9.2 Corrected Calcium 9.4 Phosphorus 5.2 H Magnesium 2.4 Iron 28 L TIBC 274 Iron Saturation 10 L Unsat Iron Binding 246 Total Bilirubin 0.6 AST 24 ALT 15 Alkaline Phosphatase 53 Troponin I < 0.020 Total Protein 6.1 Albumin 3.8 Globulin 2.3 Albumin/Globulin Ratio 1.7 TSH Free T4 11/14/24 11/14/24 11/14/24 14:07 18:50 21:56 WBC RBC Hgb Hct MCV MCH MCHC RDW Std Deviation Plt Count Neut % (Auto) Lymph % (Auto) [place] % (Auto) Eos % (Auto) Baso % (Auto) Neut # (Auto) Lymph # (Auto) [place] # (Auto) Eos # (Auto) Baso # (Auto) Immature Gran # (Auto) Absolute Nucleated RBC Immature Gran % Nucleated RBC % Sodium 131 L 132 L 131 L Potassium Chloride Carbon Dioxide Anion Gap BUN Creatinine Estim Creat Clear Calc eGFR BUN/Creatinine Ratio Glucose Estimated Ave Glu mg/dL Hemoglobin A1c Calculated Osmolality Calcium Corrected Calcium Phosphorus Magnesium Iron TIBC Iron Saturation Unsat Iron Binding Total Bilirubin AST ALT Alkaline Phosphatase Troponin I Total Protein Albumin Globulin Albumin/Globulin Ratio TSH 0.72 Free T4 1.62 Assessment & Plan Problem List (1) Altered mental status: Status: Resolved (2) Transient ischemic attack (TIA): Status: Acute Assessment and plan: Reassurance given to the patient and family regarding the MRI brain findings. No acute infarction noted. Mild chronic white matter changes consistent with age. Continue with Brilinta, aspirin 81 mg along with statin. She is advised to continue to walk with the supportive devices. (3) Bipolar disease, chronic: Status: Chronic Assessment and plan: Stable on Abilify, citalopram and benztropine (4) Dementia: Status: Chronic Assessment and plan: Progressive, continue with memantine and the donepezil
[2024-11-15] VITALS (8 sets, daily range): BP systolic 104–139; BP diastolic 66–87; PULSE 68–100; RESP 14–98; TEMP 36.7–36.9; O2SAT 96–98; BMI 22.4
[2024-11-15 05:50] LABS: Stool for WBCs 2+ (Negative)
[2024-11-15 06:25] LABS: Basophils % (Auto) 0 % (0-2.5); Eosinophils # (Auto) 0.2 Thou/mm3 (0.0-0.5); Eosinophils % (Auto) 2 % (0-10); Hematocrit 28.8 % (36.0-46.0); Immature Granulocytes % (Auto) 0 % (0-0); Immature Granulocytes Auto 0.03 Thou/mm3 (0.00-0.00); Lymphocytes % (Auto) 27 % (10-50); Mean Corpuscular HGB Conc 34.7 g/dl (31.0-37.0); Mean Corpuscular Hemoglobin 24.9 pg (25.0-35.0); Mean Corpuscular Volume 72 fL (80-100); Monocytes # (Auto) 0.7 Thou/mm3 (0.0-0.8); Monocytes % (Auto) 10 % (0-12); Neutrophils # (Auto) 4.4 Thou/mm3 (1.8-7.7); Neutrophils % (Auto) 60 % (37-80); Nucleated Red Blood Cell % 0 /100 WBC (0); Platelet Count 268 Thou/mm3 (140-440); RDW Standard Deviation 36.6 fL (36.4-46.3); Red Blood Count 4.01 Miln/mm3 (4.00-5.20); White Blood Count 7.3 Thou/mm3 (3.6-11.0)
[2024-11-15 07:04] LABS: Alanine Aminotransferase 12 U/L (10-49); Albumin, Serum 3.9 gm/dL (3.4-4.8); Albumin/Globulin Ratio 1.7 (1.2-2.2); Alkaline Phosphatase 62 U/L (46-116); Anion Gap 9 (7-16); Aspartate Amino Transferase 19 U/L (0-34); BUN/Creatinine Ratio 15 Ratio (12-20); Bilirubin,Total 0.6 mg/dL (0.3-1.2); Blood Urea Nitrogen 20 mg/dL (9-23); Calcium 9.4 mg/dL (8.3-10.6); Calcium (Corrected) 9.5 mg/dL (8.5-10.1); Carbon Dioxide 23.5 mMol/L (20.0-31.0); Chloride 101 mMol/L (98-107); Creatinine (Component) 1.3 mg/dL (0.6-1.3); Estimated Creatinine Clearance 24.7 mL/min (>60); Globulin 2.3 gm/dL (2.3-3.5); Glucose 118 mg/dL (74-106); Magnesium 1.4 mg/dL (1.6-2.6); Osmolality,Calculated 269 (275-295); Potassium 4.2 mMol/L (3.4-5.1); Sodium 133 mMol/L (136-145); Total Protein 6.2 gm/dL (5.7-8.2); eGFR 43 See Note
[2024-11-15] MEDS: PANTOPRAZOLE INJ 40 MG VIAL IVP (09:25)
[2024-11-15] MEDS: ASPIRIN EC 81 MG TABEC PO (09:25)
[2024-11-15] MEDS: SODIUM CHLORIDE 1 GM TABLET PO (09:25)
[2024-11-15] MEDS: TICAGRELOR 90 MG TABLET PO (09:25)
[2024-11-15] MEDS: Magnesium Sulfate 4 GM Ivpb 4 GM/50 ML BAG IV (09:25)
[2024-11-15] MEDS: HEPARIN SOD INJ 5000 UNIT/ML VIAL SC (09:25)
[2024-11-15] MEDS: INSULIN LISPRO (AdmeLOG) 1 UNIT/0.01 ML UNIT SC (12:24)
--- NOTE | 2024-11-15 17:08 | ESDS_ITS ---
<Statement entered by Taco Kaba MD - 11/15/24 18:21> I saw and examined the patient, and I agree with current management stated by Dr David MD,PGY1. Plan of care was discussed with the attending physician and resident physician. Disclaimer: Despite multiple revisions, due to the dictation software being used, the document bellow may not be free of grammatical errors including phonetic/typographic errors. However, this does not deter from our commitment to providing health care in the patient's best interest in mind. Dr. Sesar MD, PGY 2 Planned Discharge Date 11/15/24 DS: Providers Provider Date of admission: 11/13/24 18:06 Primary care physician: Andre Lane MD Admitting Provider: Thor Rea DO Attending Provider on Admission: Thor Rea DO Consults: 11/13/24 16:49 Consult to Neurology / Tele-Neurology Stat Comment: Strokelike symptoms Consulting Provider: Harpreet Rascon 11/13/24 17:08 Consult to Neurology / Tele-Neurology Stat Comment: Dizziness Consulting Provider: Harpreet Rascon 11/13/24 18:44 Referral Physical Therapy Routine Comment: Physician Instructions: 11/13/24 18:45 Referral Speech Therapy Routine Comment: 11/13/24 18:49 Referral Registered Dietitian Routine Comment: chronic diarhoea from a month Attending Provider on DC: Thor Rea DO Discharging Provider: Thor Rea DO DS: Diagnosis Problem List Completed Was Problem List Reviewed/Reconciled?: Yes Hospital Course Hospital Course Hospital course: Ms. Disla is a 74-year-old female with past medical history significant for type 2 diabetes, CKD, chronic anemia, depression, dementia and coronary artery disease status post 1 stent in 2019 on Brilinta presents to [facility] ED on 11/13/24 after ground-level fall, slurred speech and generalized weakness. On admission Pt was found to have sodium of 125, likely contributing to her symptoms. Pt was worked up fro acute CVA. Neurologist Dr. Sorenson was consulted and Pts CT of head and MRI with MRA were negative for ischemic or hemorrhagic strokes. Pt was started on hypertonic saline which corrected her sodium to 133. Pt also complains of chronic diarrhea which lasted 5-6 weeks and resolved 2 days before hospital admission. Stool studies, giardea and ova tests are ordered and pending results.Pt symptoms completely resolved. Pt underwent PT evaluations and recommendations included home with home [facility] PT. Pt was alert and oriented x3 and with completed resolution of her symptoms, tolerating oral diet. Pt is hemodynamically stable to be discharge home with daughter with homehealth PT. Pt is advised to return to the ED if her symptoms return or worsen. Discharge Recommendations -Follow up outpatient with your primary care within 1 week, your primary care can go over all the stool culture testings that are ordered in the hospital and pending results. -Take all your medications as directed -You have been started on salt tablets due to low sodium levels in your blood, follow up with your primary care to repeat labs and decide when to stop the salt tablets. -Follow up with neurologist Dr. Del Toro outpatient in 2 weeks, call [phone] for appointment -If your symtptoms worsen or return, promptly return to the ED Hospitalization Diagnosis #Symptomatic hyponatremia- reoslved #Hypoosmolar Euvolemic #Chronic Diarrhea-resolved #ALISSA on CKD lllB #Acute on chronic encepholapathy- improved #Acute CVA-ruled out #TIA #Dementia #Depression #Type 2 Diabetes Mellitus #Microcytic Anemia #CAD s/p stent Assessment and plan discussed with my senior resident Dr. Kaba & attending physician Dr. Rona Hernandez (PGY-1)- Internal medicine resident Time Spent with Patient Time attestation: Total time spent providing and/or coordinating discharge services: Time spent: Greater than 30 minutes Home Health Home Health Referral Orders: 11/15/24 08:12 Home Health Referral Routine Reason For Exam: debility Home-Bound The patient must either because of illness or injury, need the aid of supportive devices such as crutches, canes, wheelchairs, and walkers; the use of special transportation; or the assistance of another person in order to leave their place of residence; OR have a condition such that leaving his or her home is medically contraindicated. In addition, the patient also meets the following criteria: patient is normally unable to leave the home and leaving home requires considerable taxing effort. Addendum to Home Health Certification Practitioner's Certification: I certify that the patient has been under my care in the hospital and the care of attending physician (see below). We had a [id number] encounter on (see date below). My clinical findings indicate that the patient is home bound per the above criteria and the Home Health Services noted in these orders are medically necessary. The primary reason for the [id number] encounter is related to the fact that the patient requires home health services. Date Certifying [id number] Physician Encounter: 11/13/24 Physician's Name who will Assume Oversight for Services: Andre Lane Physician's Phone No.who will Assume Oversight for Service: MANAGER PRIVACY - Community Resources: No PT to Evaluate: Yes PT to evaluate and provide a treatmnet plan to increase patient's mobility and strength. Wound Care: No IV Therapy: No Discontinue PICC Line Once Treatment Complete: No RN Safety Evaluation: Yes RN to evaluate and create a plan of care that will produce positive outcomes. Palliative Treatment: No Palliative treatment and evaluate the need for hospice. Home Health Aide - Personal Care: No Home Health Aide to assist with any ADL's. Exam Vital Signs Temp Pulse Resp BP Pulse Ox O2 Del Method O2 Flow Rate 98.0 F 87 23 H 104/66 98 Room Air 100 11/15/24 16:00 11/15/24 16:00 11/15/24 16:00 11/15/24 16:00 11/15/24 16:00 11/15/24 16:00 11/15/24 16:00 Narrative Exam GENERAL: A&Ox3 . Awake, Not in acute distress NEURO: no focal neurological deficits HEENT: Atraumatic, Normocephalic. mucous membranes moist. Eyes open, symmetrical, & clear HEART: Normal Heart Sounds LUNGS: Clear to auscultation with no wheezing or crackles. ABDOMEN: soft, non-distended, non-tender, bowel sounds heard, no guarding or rebound tenderness SKIN: No Rash or ecchymoses EXTREMITIES: No edema, tenderness, able to move all 4 extremities, pedal pulses palpated Discharge Plan Plan Patient Disposition: Home w/HOME HEALTH Disposition Comment: Stable Care Plan Goals: -Follow up outpatient with your primary care within 1 week, your primary care can go over all the stool culture testings that are ordered in the hospital and pending results. -Take all your medications as directed -You have been started on salt tablets due to low sodium levels in your blood, follow up with your primary care to repeat labs and decide when to stop the salt tablets. -Follow up with neurologist Dr. Del Toro outpatient in 2 weeks, call [phone] for appointment -If your symtptoms worsen or return, promptly return to the ED Prescriptions/Referrals Prescriptions/Med Rec: New sodium chloride 1,000 mg Tablet,Soluble 1,000 mg PO BID Qty: 30 3RF Continued citalopram [Celexa] 20 mg Tablet 20 mg PO QDAY Qty: 0 atorvastatin 80 mg Tablet 80 mg PO QDAY donepezil 10 mg Tablet 10 mg PO QDAY aspirin 81 mg Tablet,Delayed Release (Dr/Ec) 81 mg PO QDAY pantoprazole 40 mg Tablet,Delayed Release (Dr/Ec) 40 mg PO QDAY aripiprazole [Abilify] 20 mg Tablet 20 mg PO QDAY metformin 1,000 mg tablet 1,000 mg PO BID benztropine 2 mg tablet 2 mg PO BID memantine 10 mg Tablet 10 mg PO BID Brilinta 90 mg Tablet 90 mg PO BID ondansetron 4 mg tablet,disintegrating 4 mg PO Q8H Qty: 10 0RF Discontinued pantoprazole 40 mg Tablet,Delayed Release (Dr/Ec) 40 mg PO BID Qty: 60 2RF Referrals: Harpreet Rascon MD [Physician] - Andre Lane MD [Primary Care Provider] - Patient/Caregiver Discharge Instructions Education Materials: ED ALOC, ED Confusion Print Language: Mosotho Stand Alone Forms: Sabrina Award Info., Patient Portal Info Letter Discharge Order Discharge Orders: Discharge (Routine); Ordered 11/15/24 Ordered By: Josefa Hernandez Quality Discharge Quality Measures VTE prophylaxis Attestestation MD Attestation I have discussed and was present for the essential components of the discharge history, physical examination, diagnosis, and discharge treatment plan with the resident. I agree with the patient's discharge care as documented by the resident and amended herein by me. Wilfredo Rea DO. The patient understood all discharge instructions, all questions were answered satisfactorily. The patient was instructed to return to the Emergency Department is symptoms worsened or persisted. Patient was stable, afebrile, tolerating p.o. intake at time of discharge home. Patient significantly improved, neurology thinks possible TIA however I still think it may have been metabolic dysfunction on arrival considering history of extensive diarrhea likely from influenza B. Hopefully she is resolved and will have no further issues in the future. Patient was discharged however on salt tabs as her sodium was dropping, she will need close follow-up within 1 week with her primary care physician for further management and monitoring. This was also relayed to her family members which were at bedside and understood, all questions answered satisfactorily. Although this document has been carefully reviewed, there may still be some phonetic and other typographical errors. These errors are purely grammatical due to imperfections in the software program and should not be construed in any way to compromise the substance of the patient's medical care during this visit.
--- NOTE | 2024-11-16 07:29 | PC.CC ---
Addendum entered by Nella Jay RN 11/16/24 08:16: Pt booked with [facility] pending soc Addendum entered by Nella Jay RN 11/16/24 08:09: Referrals sent pending responses Original Note: Pt entered into [facility], no preferred hh agencies noted
--- NOTE | 2024-11-17 07:03 | PD.VPROG1 ---
Telemedicine visit statement This visit was conducted with the use of interactive audio and video telecommunications system that permits real time communication between the patient and the provider. Patient's verbal consent for virtual visit was obtained on 11/15/24. Documentation for date of: 11/15/24 Subjective Subjective Interval history: Patient is in telemetry. No new symptoms reported. She is able to transfer to bedside commode. Her speech and balance have improved. Virtual exam Vital Signs Temp Pulse Resp BP Pulse Ox O2 Del Method O2 Flow Rate 98.0 F 87 23 H 104/66 98 Room Air 100 11/15/24 16:00 11/15/24 16:00 11/15/24 16:00 11/15/24 16:00 11/15/24 16:00 11/15/24 16:00 11/15/24 16:00 Objective Labs 11/15/24 04:55 11/15/24 04:55 Assessment & Plan Problem List (1) Altered mental status: Status: Resolved (2) Transient ischemic attack (TIA): Status: Acute Assessment and plan: Reassurance given to the patient and family regarding the MRI brain findings. No acute infarction noted. Mild chronic white matter changes consistent with age. Continue with Brilinta, aspirin 81 mg along with statin. She is advised to continue to walk with the supportive devices. (3) Bipolar disease, chronic: Status: Chronic Assessment and plan: Stable on Abilify, citalopram and benztropine (4) Dementia: Status: Chronic Assessment and plan: Progressive, continue with memantine and the donepezil
[2024-11-19 06:33] LABS: Giardia Result NOT DETECTED
--- NOTE | 2024-11-19 10:40 | PC.CC ---
Start of care date with Daniella is 11/19/24.
== END 2024-11-15 16:15 | disposition home health service (06) | DRG 69 ==
LOC: SERX 17:57 → SERHOLD 18:24 → S2NX 22:00
PROVIDERS: Nurse Practitioner Family; Student in an Organized Health Care Education/Training Program; Admitting Provider Student in an Organized Health Care Education/Training Program; Emergency Provider Emergency Medicine; PCP Family Medicine; Visit Provider Student in an Organized Health Care Education/Training Program
DX: G45.9 Transient cerebral ischemic attack, unspecified (principal); E87.1 Hypo-osmolality and hyponatremia; N17.9 Acute kidney failure, unspecified; F03.93 Unspecified dementia, unspecified severity, with mood disturbance; G93.40 Encephalopathy, unspecified; N18.9 Chronic kidney disease, unspecified; I12.9 Hypertensive chronic kidney disease with stage 1 through stage 4 chronic kidney disease, or unspecified chronic kidney disease; E11.22 Type 2 diabetes mellitus with diabetic chronic kidney disease; D50.9 Iron deficiency anemia, unspecified; I25.10 Atherosclerotic heart disease of native coronary artery without angina pectoris; K52.9 Noninfective gastroenteritis and colitis, unspecified; D63.1 Anemia in chronic kidney disease; E78.00 Pure hypercholesterolemia, unspecified; F32.A Depression, unspecified; Z86.73 Personal history of transient ischemic attack (TIA), and cerebral infarction without residual deficits; R47.81 Slurred speech; Z95.5 Presence of coronary angioplasty implant and graft; Z79.899 Other long term (current) drug therapy; Z79.82 Long term (current) use of aspirin; Z79.02 Long term (current) use of antithrombotics/antiplatelets; W18.30XA Fall on same level, unspecified, initial encounter; Z79.84 Long term (current) use of oral hypoglycemic drugs; R26.81 Unsteadiness on feet
CPT/HCPCS: 36415; 70450; 70544; 70551; 71045; 72170; 80053; 81001; 82436; 82728; 83036; 83540; 83550; 83605; 83615; 83690; 83735; 83880; 84100; 84133; 84145; 84295; 84300; 84439; 84443; 84484; 85025; 85610; 85730; 86850; 86900; 86901; 87015; 87040; 87045; 87046; 87077; 87086; 87205; 87329; 87899; 92610; 93005; 96361; 96365; 96366; 96367; 96372; 97161; 99285; J1643; J1815; J2470; J3475; J7030; J7070; J7131; A9270

== ENCOUNTER → 2024-11-26 | Outpatient (CLI) | payer MEDICARE, MEDICAID, SELFPAY | END | disposition home or self-care (01) | PROVIDERS: PCP Family Medicine; Referring Provider Family Medicine; Visit Provider Family Medicine | DX: Z13.1 Encounter for screening for diabetes mellitus (principal) | CPT/HCPCS: 36415; 80048 ==

== ENCOUNTER → 2024-12-07 | Outpatient (CLI) | payer MEDICARE, MEDICAID, SELFPAY ==
[2024-12-07 11:50] LABS: Parathyroid Hormone Intact 45.8 pg/ml (18.5-88.0)
[2024-12-07 11:54] LABS: Glucose Estimated Average 160 mg/dL (80-131); Hemoglobin A1C 7.2 % Hgb (4.8-6.0)
[2024-12-07 11:57] LABS: Alanine Aminotransferase 16 U/L (10-49); Albumin, Serum 4.4 gm/dL (3.4-4.8); Albumin/Globulin Ratio 1.8 (1.2-2.2); Alkaline Phosphatase 81 U/L (46-116); Anion Gap 11 (7-16); Aspartate Amino Transferase 25 U/L (0-34); BUN/Creatinine Ratio 15 Ratio (12-20); Bilirubin,Total 0.5 mg/dL (0.3-1.2); Blood Urea Nitrogen 21 mg/dL (9-23); Calcium 9.4 mg/dL (8.3-10.6); Calcium (Corrected) 9.4 mg/dL (8.5-10.1); Carbon Dioxide 24.5 mMol/L (20.0-31.0); Cardiac Risk Estimate 1.9 RATIO (3.7-5.6); Chloride 104 mMol/L (98-107); Cholesterol 99 mg/dL (132-200); Creatinine (Component) 1.4 mg/dL (0.6-1.3); Globulin 2.5 gm/dL (2.3-3.5); Glucose 105 mg/dL (74-106); HDL Cholesterol 52 mg/dL (40-60); LDL Cholesterol,Calculated 32 mg/dL (0-130); Osmolality,Calculated 280 (275-295); Phosphorous 4.5 mg/dL (2.4-5.1); Potassium 4.8 mMol/L (3.4-5.1); Sodium 139 mMol/L (136-145); Total Protein 6.9 gm/dL (5.7-8.2); Triglycerides 74 mg/dL (30-150); Uric Acid 6.3 mg/dL (3.1-7.8); eGFR 39 See Note
[2024-12-07 12:01] LABS: Ferritin 43 ng/mL (7.3-270.7); Iron 50 mcg/dL (50-170); Percent Iron Saturation 15 % (20-55); Total Iron Binding Capacity 328 mcg/dL (250-425); Unsaturated Iron Binding 278 (225-295)
[2024-12-07 12:28] LABS: Basophils # (Auto) 0.1 Thou/mm3 (0.0-0.2); Basophils % (Auto) 1 % (0-2.5); Eosinophils # (Auto) 0.1 Thou/mm3 (0.0-0.5); Eosinophils % (Auto) 1 % (0-10); Hematocrit 26.4 % (36.0-46.0); Immature Granulocytes % (Auto) 1 % (0-0); Immature Granulocytes Auto 0.03 Thou/mm3 (0.00-0.00); Lymphocytes # (Auto) 1.5 Thou/mm3 (1.0-4.8); Lymphocytes % (Auto) 23 % (10-50); Mean Corpuscular HGB Conc 32.6 g/dl (31.0-37.0); Mean Corpuscular Hemoglobin 24.6 pg (25.0-35.0); Mean Corpuscular Volume 76 fL (80-100); Monocytes # (Auto) 0.5 Thou/mm3 (0.0-0.8); Monocytes % (Auto) 8 % (0-12); Neutrophils # (Auto) 4.3 Thou/mm3 (1.8-7.7); Neutrophils % (Auto) 67 % (37-80); Nucleated Red Blood Cell % 0 /100 WBC (0); Platelet Count 385 Thou/mm3 (140-440); RDW Standard Deviation 40.6 fL (36.4-46.3); Red Blood Count 3.49 Miln/mm3 (4.00-5.20); White Blood Count 6.4 Thou/mm3 (3.6-11.0)
[2024-12-07 12:47] LABS: Hemoglobin 8.6 g/dL (12.0-16.0)
== END | disposition home or self-care (01) ==
LOC: SLDO 10:06
PROVIDERS: Referring Provider Internal Medicine Nephrology; Visit Provider Internal Medicine Nephrology
DX: I12.9 Hypertensive chronic kidney disease with stage 1 through stage 4 chronic kidney disease, or unspecified chronic kidney disease (principal); E11.22 Type 2 diabetes mellitus with diabetic chronic kidney disease; N18.4 Chronic kidney disease, stage 4 (severe); D63.1 Anemia in chronic kidney disease; E21.3 Hyperparathyroidism, unspecified; M10.30 Gout due to renal impairment, unspecified site; E78.5 Hyperlipidemia, unspecified
CPT/HCPCS: 36415; 80053; 80061; 82728; 83036; 83540; 83550; 83735; 83970; 84100; 84550; 85025

== ENCOUNTER → 2024-12-21 | Outpatient (CLI) | payer MEDICARE, MEDICAID, SELFPAY ==
[2024-12-21 11:36] LABS: Alanine Aminotransferase 25 U/L (10-49); Albumin/Globulin Ratio 1.5 (1.2-2.2); Alkaline Phosphatase 69 U/L (46-116); Anion Gap 8 (7-16); Aspartate Amino Transferase 31 U/L (0-34); BUN/Creatinine Ratio 17 Ratio (12-20); Bilirubin,Total 0.6 mg/dL (0.3-1.2); Blood Urea Nitrogen 17 mg/dL (9-23); Calcium 9.1 mg/dL (8.3-10.6); Calcium (Corrected) 9.1 mg/dL (8.5-10.1); Carbon Dioxide 26.8 mMol/L (20.0-31.0); Chloride 101 mMol/L (98-107); Globulin 2.7 gm/dL (2.3-3.5); Glucose 106 mg/dL (74-106); Osmolality,Calculated 273 (275-295); Potassium 3.8 mMol/L (3.4-5.1); Sodium 136 mMol/L (136-145); Total Protein 6.7 gm/dL (5.7-8.2); eGFR 58 See Note
[2024-12-21 12:47] LABS: Basophils % (Auto) 1 % (0-2.5); Eosinophils # (Auto) 0.2 Thou/mm3 (0.0-0.5); Eosinophils % (Auto) 3 % (0-10); Hematocrit 29.2 % (36.0-46.0); Hemoglobin 9.5 g/dL (12.0-16.0); Immature Granulocytes % (Auto) 0 % (0-0); Immature Granulocytes Auto 0.01 Thou/mm3 (0.00-0.00); Lymphocytes # (Auto) 1.4 Thou/mm3 (1.0-4.8); Lymphocytes % (Auto) 23 % (10-50); Mean Corpuscular HGB Conc 32.5 g/dl (31.0-37.0); Mean Corpuscular Hemoglobin 25.1 pg (25.0-35.0); Mean Corpuscular Volume 77 fL (80-100); Monocytes # (Auto) 0.4 Thou/mm3 (0.0-0.8); Monocytes % (Auto) 7 % (0-12); Neutrophils % (Auto) 67 % (37-80); Nucleated Red Blood Cell % 0 /100 WBC (0); Platelet Count 221 Thou/mm3 (140-440); RDW Standard Deviation 45.1 fL (36.4-46.3); Red Blood Count 3.79 Miln/mm3 (4.00-5.20); White Blood Count 5.9 Thou/mm3 (3.6-11.0)
== END | disposition home or self-care (01) ==
PROVIDERS: Referring Provider Internal Medicine Nephrology; Visit Provider Internal Medicine Nephrology
DX: I12.9 Hypertensive chronic kidney disease with stage 1 through stage 4 chronic kidney disease, or unspecified chronic kidney disease (principal); D63.1 Anemia in chronic kidney disease; N18.4 Chronic kidney disease, stage 4 (severe)
CPT/HCPCS: 36415; 80053; 85025

== ENCOUNTER → 2025-01-04 | Outpatient (CLI) | payer MEDICARE, MEDICAID, SELFPAY ==
[2025-01-04 12:07] LABS: Basophils % (Auto) 1 % (0-2.5); Eosinophils # (Auto) 0.3 Thou/mm3 (0.0-0.5); Eosinophils % (Auto) 4 % (0-10); Hematocrit 32.5 % (36.0-46.0); Hemoglobin 10.5 g/dL (12.0-16.0); Immature Granulocytes % (Auto) 0 % (0-0); Immature Granulocytes Auto 0.01 Thou/mm3 (0.00-0.00); Lymphocytes # (Auto) 1.3 Thou/mm3 (1.0-4.8); Lymphocytes % (Auto) 20 % (10-50); Mean Corpuscular HGB Conc 32.3 g/dl (31.0-37.0); Mean Corpuscular Hemoglobin 25.2 pg (25.0-35.0); Mean Corpuscular Volume 78 fL (80-100); Monocytes # (Auto) 0.5 Thou/mm3 (0.0-0.8); Monocytes % (Auto) 7 % (0-12); Neutrophils # (Auto) 4.5 Thou/mm3 (1.8-7.7); Neutrophils % (Auto) 69 % (37-80); Nucleated Red Blood Cell % 0 /100 WBC (0); Platelet Count 293 Thou/mm3 (140-440); RDW Standard Deviation 45.5 fL (36.4-46.3); Red Blood Count 4.16 Miln/mm3 (4.00-5.20); White Blood Count 6.6 Thou/mm3 (3.6-11.0)
[2025-01-04 12:18] LABS: Alanine Aminotransferase 30 U/L (10-49); Albumin, Serum 4.3 gm/dL (3.4-4.8); Albumin/Globulin Ratio 1.7 (1.2-2.2); Alkaline Phosphatase 87 U/L (46-116); Anion Gap 8 (7-16); Aspartate Amino Transferase 27 U/L (0-34); BUN/Creatinine Ratio 23 Ratio (12-20); Bilirubin,Total 0.6 mg/dL (0.3-1.2); Blood Urea Nitrogen 27 mg/dL (9-23); Calcium 9.2 mg/dL (8.3-10.6); Calcium (Corrected) 9.2 mg/dL (8.5-10.1); Carbon Dioxide 29.3 mMol/L (20.0-31.0); Chloride 102 mMol/L (98-107); Creatinine (Component) 1.2 mg/dL (0.6-1.3); Globulin 2.6 gm/dL (2.3-3.5); Glucose 112 mg/dL (74-106); Osmolality,Calculated 283 (275-295); Potassium 4.3 mMol/L (3.4-5.1); Sodium 139 mMol/L (136-145); Total Protein 6.9 gm/dL (5.7-8.2); eGFR 47 See Note
== END | disposition home or self-care (01) ==
PROVIDERS: Referring Provider Internal Medicine Nephrology; Visit Provider Internal Medicine Nephrology
DX: I12.9 Hypertensive chronic kidney disease with stage 1 through stage 4 chronic kidney disease, or unspecified chronic kidney disease (principal); N18.9 Chronic kidney disease, unspecified; D63.1 Anemia in chronic kidney disease
CPT/HCPCS: 36415; 80053; 85025

== ENCOUNTER → 2025-01-19 | Outpatient (CLI) | payer MEDICARE, MEDICAID, SELFPAY ==
[2025-01-19 14:01] LABS: Basophils % (Auto) 1 % (0-2.5); Eosinophils # (Auto) 0.2 Thou/mm3 (0.0-0.5); Eosinophils % (Auto) 3 % (0-10); Hematocrit 31.4 % (36.0-46.0); Hemoglobin 10.2 g/dL (12.0-16.0); Immature Granulocytes % (Auto) 0 % (0-0); Immature Granulocytes Auto 0.02 Thou/mm3 (0.00-0.00); Lymphocytes # (Auto) 1.5 Thou/mm3 (1.0-4.8); Lymphocytes % (Auto) 25 % (10-50); Mean Corpuscular HGB Conc 32.5 g/dl (31.0-37.0); Mean Corpuscular Hemoglobin 25.2 pg (25.0-35.0); Mean Corpuscular Volume 78 fL (80-100); Monocytes # (Auto) 0.4 Thou/mm3 (0.0-0.8); Monocytes % (Auto) 7 % (0-12); Neutrophils # (Auto) 3.9 Thou/mm3 (1.8-7.7); Neutrophils % (Auto) 65 % (37-80); Nucleated Red Blood Cell % 0 /100 WBC (0); Platelet Count 273 Thou/mm3 (140-440); RDW Standard Deviation 43.8 fL (36.4-46.3); Red Blood Count 4.04 Miln/mm3 (4.00-5.20); White Blood Count 6.1 Thou/mm3 (3.6-11.0)
[2025-01-19 14:05] LABS: Alanine Aminotransferase 27 U/L (10-49); Albumin, Serum 4.2 gm/dL (3.4-4.8); Albumin/Globulin Ratio 1.9 (1.2-2.2); Alkaline Phosphatase 74 U/L (46-116); Anion Gap 11 (7-16); Aspartate Amino Transferase 30 U/L (0-34); BUN/Creatinine Ratio 16 Ratio (12-20); Bilirubin,Total 0.5 mg/dL (0.3-1.2); Blood Urea Nitrogen 21 mg/dL (9-23); Calcium 8.8 mg/dL (8.3-10.6); Calcium (Corrected) 8.8 mg/dL (8.5-10.1); Carbon Dioxide 28.1 mMol/L (20.0-31.0); Chloride 103 mMol/L (98-107); Creatinine (Component) 1.3 mg/dL (0.6-1.3); Globulin 2.2 gm/dL (2.3-3.5); Glucose 109 mg/dL (74-106); Osmolality,Calculated 287 (275-295); Potassium 4.4 mMol/L (3.4-5.1); Sodium 142 mMol/L (136-145); Total Protein 6.4 gm/dL (5.7-8.2); eGFR 43 See Note
== END | disposition home or self-care (01) ==
LOC: SLDO 11:15
PROVIDERS: PCP Family Medicine; Referring Provider Internal Medicine Nephrology; Visit Provider Internal Medicine Nephrology
DX: I12.9 Hypertensive chronic kidney disease with stage 1 through stage 4 chronic kidney disease, or unspecified chronic kidney disease (principal); N18.9 Chronic kidney disease, unspecified; D63.1 Anemia in chronic kidney disease
CPT/HCPCS: 36415; 80053; 85025